=== PATIENT | female | born 1975 | race Caucasian/White ===

== ENCOUNTER 2023-06-10 09:20 | Outpatient (CLI) | payer OTHER, SELFPAY ==
--- NOTE | ~2023-06-10 | US_ITS ---
US abdomen complete EXAMINATION: US Abdomen Complete INDICATION: Leukopenia. PROCEDURE: Realtime High Resolution abdomen ultrasound. COMPARISON: No prior studies for comparison FINDINGS: Gallbladder is surgically absent. Common bile duct measures 4.5 mm. Liver echotexture within normal limits without focal mass. Pancreas within normal limits. Pancreati c tail is obscured by bowel gas. Spleen is unremarkeable. Renal echotexture is within normal limits bilaterally without hydronephrosis, contour deforming mass or renal stone. Right kidney measures 10.9 cm. Left kidney measures 11 cm. There is an oval hyperechoic 8 mm mass of the right kidney which may represent a small angiomyolipoma. Visualized aspects of the aorta and IVC are within normal limits. Portal vein is patent. No sonograph ic Villanueva's sign indicated by the technologist. 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 R ecommend correlation with CT abdomen with without and with contrast. Reviewed, dictated and finalized at location A. IMPRESSION: 1: Small oval circumscribed 8 mm hypoechoic right renal mass, possibly benign r enal angiomyolipoma. Recommend correlation with CT abdomen with without and wit h contrast.
== END 2023-06-10 09:21 | disposition home or self-care (01) ==
PROVIDERS: PCP Internal Medicine; Visit Provider Internal Medicine Hematology & Oncology
DX: D72.819 Decreased white blood cell count, unspecified (principal)
CPT/HCPCS: 76700

== ENCOUNTER 2024-06-24 12:57 | Outpatient (CLI) | payer OTHER, SELFPAY ==
[2024-06-24 13:13] LABS: Basophils Percent Auto 0.5 % (0.2-1.2); Eosinophils Absolute Auto 0.7 K/mm3 (0-0.3); Eosinophils Percent Auto 16.3 % (0-4.4); Hemoglobin 15.1 g/dL (12.0-15.0); Immature Granulocyte Absolute 0.01 K/mm3 (0.00-0.031); Immature Granulocyte Percent A 0.2 % (0-0.5); Lymphocytes Absolute Auto 0.79 K/mm3 (0.9-3.2); Mean Corpuscular HGB Conc 33.6 g/dl (32-36); Mean Corpuscular Hemoglobin 29.9 pg (26-34); Mean Corpuscular Volume 89.1 fl (80-100); Mean Platelet Volume 9.4 fl (7.4-10.4); Monocytes Absolute Auto 0.4 K/mm3 (0.1-0.6); Monocytes Percent Auto 8.7 % (2.6-8.5); Neutrophils Absolute Auto 2.3 K/mm3 (1.3-6.7); Neutrophils Percent Auto 55.3 % (45.5-73.1); Platelet Count Result 187 k/mm3 (150-375); Red Blood Count 5.05 M/mm3 (4.2-5.4); Red Cell Distribution Width 12.5 % (11.5-14.5); White Blood Count 4.2 K/mm3 (4.5-10.0)
== END 2024-06-24 12:58 | disposition home or self-care (01) ==
LOC: ANHLAB 12:58
PROVIDERS: PCP Internal Medicine; Visit Provider Internal Medicine Hematology & Oncology
DX: D64.9 Anemia, unspecified (principal)
CPT/HCPCS: 36415; 85025

== ENCOUNTER 2025-03-24 12:57 | Outpatient (CLI) | payer OTHER, SELFPAY ==
--- OUTSIDE RECORDS SUMMARY | 2025-03-24 13:02 | XMS_ITS | Clinical Summary ---
Author Organization [facility] Virtual Care Address [address] [place] [phone] Phone Care Team Providers Care Welder Helper Name Role Phone Jemma Medeiros NP Primary Care Provider [phone] Arleth Mckeon MD Unavailable [phone] Allergies Active Allergy Reactions Criticality Noted Date Comments Penicillins Rash,Unknown Medium 04/15/2013 As a baby Medications hydrOXYzine (ATARAX) 10 mg tablet Take 1 tablet (10 mg total) by mouth every 6 (six) hours as needed Active albuterol HFA (PROVENTIL HFA,VENTOLIN HFA,PROAIR HFA) 90 mcg/actuation inhaler Inhale 2 puffs every 6 (six) hours as needed for shortness of breath 04/05/20 22 Active albuterol-budes onide (Airsupra) 90-80 mcg/actuation HFA aerosol inhalerIndicati ons:SOB (shortness of breath) Inhale 2 puffs 4 (four) times a day as needed (sob) 32.1 g 1 06/15/20 24 Active azelastine (ASTELIN) 137 mcg (0.1 %) nasal spray Administer 2 sprays into affected nostril(s) 2 (two) times a day 06/17/20 24 Active Caplyta 21 mg capsule Take 1 capsule by mouth daily 06/11/20 24 Active QUEtiapine (SEROquel) 100 mg tablet Take 1 tablet (100 mg total) by mouth nightly Active divalproex ER (DEPAKOTE ER) 250 mg 24 hr tablet Take 1 tablet (250 mg total) by mouth 2 (two) times a day 180 tablet 3 02/10/20 25 026 Active estradioL (VIVELLE-DOT) 0.075 mg/24 hrIndications:H ormone replacement therapy (HRT) PLACE 1 PATCH ON THE SKIN TWICE A WEEK 24 patch 3 03/03/20 25 Active armodafiniL (NUVIGIL) 150 mg tabletIndicatio ns:Fibromyalgia Take 1 tablet (150 mg total) by mouth daily 30 tablet 3 03/02/20 25 025 Active pregabalin (LYRICA) 200 mg capsuleIndicati ons:Generalized joint pain Take 1 capsule (200 mg total) by mouth nightly 90 capsule 1 03/02/20 25 Active pregabalin (LYRICA) 100 mg capsuleIndicati ons:Generalized joint pain Take 1 capsule (100 mg total) by mouth 2 (two) times a day 180 capsule 1 03/02/20 25 Active estradioL (VIVELLE-DOT) 0.075 mg/24 hrIndications:H ormone replacement therapy (HRT) Place 1 patch on the skin 2 (two) times a week 24 patch 3 04/06/20 24 025 Discontinued pregabalin (LYRICA) 200 mg capsuleIndicati ons:Generalized joint pain Take 1 capsule (200 mg total) by mouth nightly 30 capsule 12/04/19 25 025 Discontinued pregabalin (LYRICA) 100 mg capsuleIndicati ons:Generalized joint pain Take 1 capsule (100 mg total) by mouth 2 (two) times a day 60 capsule 12/04/19 25 025 Discontinued Active Problems Problem Noted Date Diagnosed Date Meibomian gland dysfunction (MGD) of upper and lower lids of both eyes 10/28/2024 Assessment & Plan (10/28/2024 2:02 PM CDT): Educated patient on condition. Recommend hot compresses at least bid OU. If still bothersome after 1-2 weeks, can Rx maxitrol nathalie. BMI 27.0-27.9,adult 08/06/2024 Generalized joint pain 07/22/2024 Herpes zoster without complication 01/03/2024 Overview (01/03/2024): Start acyclovir gabapentin and Silvadene as directed. Notify the office without improvement of symptoms Endometrial hyperplasia 12/04/2023 Vitreous syneresis of both eyes 07/18/2023 Assessment & Plan (07/18/2023 2:17 PM HUNTER): May have increase in symptoms, no RD/RT, recommend observation. 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 Return in 9 months with fundus photos and B scan (unable to reliably find lesion on A-scan). Assessment & Plan (04/09/2024 1:37 PM CDT): Initial dx in 2015 and had been following with [facility] for serial monitoring, re-established care in [facility] The mass appears stable. Return in 6 months with fundus photos and B scan (unable to reliably find lesion on A-scan). Assessment & Plan (07/18/2023 2:05 PM HUNTER): Initial dx in 2015 and had been following with [facility] for serial monitoring, re-established care in [place] 2022. The mass appears stable. Return in 6 months with fundus photos and B scan. Assessment & Plan (01/10/2023 4:24 PM CDT): Initial dx in 2015 and had been following with [facility] for serial monitoring, recently yearly, most recently 08/2022. Patient moving to [place]. The choroidal mass is peripheral and small in size and thickness, will repeat follow up in 6 months. Low serum vitamin B12 12/19/2022 Vitamin D deficiency 12/19/2022 Seizure disorder 12/19/2022 Bipolar disorder, unspecified 06/12/2021 Insomnia, unspecified 06/12/2021 Resolved Problems Problem Noted Date Diagnosed Date Resolved Date SOB (shortness of breath) 06/15/2024 Positive CORRINA (antinuclear antibody) 01/10/2024 03/10/2024 Overview (01/10/2024): use referral to follow-up with rheumatology regarding positive CORRINA. Lab work will be loaded into your chart BMI 24.0-24.9, adult 10/07/2023 025 Assessment & Plan (06/15/2024 1:35 PM HUNTER): Weight/BMI is in healthy range. Continue healthy lifestyle to maintain. 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 03/10/2024 Other seizures 06/12/2021 03/10/2024 Encounters Date Type Department Care Team Description 03/10/2025 Orders Only [facility] Neuro Sleep [address] [facility] 6th Floor [address] [place] [phone] Kelle Guillaume RN Excessive daytime sleepiness (Primary Dx) 03/05/2025 Telephone [facility] Epilepsy [address] [place] [address] Teto Welsh MD PhD 03/05/2025 Telephone [facility] Family Medicine [address] [place] [address] [place] [phone] Jemma Medeiros NP Forms Request 03/02/2025 3:30 PM CDT Office Visit [facility] Family Medicine [address] [place] [address] [place] [phone] Jemma Medeiros NP Fibromyalgia (Primary Dx); BMI 27.0-27.9,adult; Acute pain of right shoulder; Generalized joint pain; Generalized joint pain 02/11/2025 Results Follow-Up [facility] Epilepsy [address] [facility] 6th [place] [address] [place] [address] Teto Welsh MD PhD Vitamin D 25 hydroxy, Comprehensive metabolic panel, CBC with auto differential, Additional followed-up results: 3 02/09/2025 7:00 PM CDT Lab [facility] [address] [place] [address] High risk medication use 02/09/2025 4:30 PM CDT Office Visit [facility] Epilepsy [address] [facility] 6th [place] [address] [place] [address] Teto Welsh MD PhD Seizure disorder (HCC) (Primary Dx); High risk medication use 01/28/2025 3:20 PM CDT Office Visit [facility] Ophthalmology [address] [facility] [address] [place] [address] Ani Welch MD Choroidal nevus, right eye (Primary Dx) from Last 3 Months Immunizations Immunization Administration Dates Next Due Influenza, Unspecified 05/26/2024,2023(Deferred: Patient Refused),10/07/2023(Deferred: Patient Refused),08/12/2023(Deferred: Patient Refused),08/12/2023(Deferred: Patient Refused),08/12/2023(Deferred: Patient Refused) Pfizer SARS-CoV-2 Monovalent Vaccination (12+ Yrs) PURPLE 01/23/2021,12/23/2020 Tdap 12/19/2022,12/29/2018 Surgical History Surgery Date Site/Laterality Comments BREAST SURGERY COSMETIC SURGERY SECTION FRACTURE SURGERY CHOLECYSTECTOMY HYSTERECTOMY 01/14/2024 Medical History Medical History Date Comments Asthma Anxiety Depression Seizures (HCC) Malignant melanoma of eye (HCC) 05/08/2023 Fibromyalgia Family History Medical History Relation Name Comments Cancer Brother Stew Depression Brother Stew Mental illness Brother Stew Depression Daughter 1 Carmen Obesity Daughter 1 Carmen Depression Daughter 2 Kiley Obesity Daughter 2 Kiley Depression Father Father Savage Diabetes Father Father Savage Mental illness Father Father Savage Cancer Maternal Grandfather Grandpa Dorian Diabetes Mother's Brother Thomas and Dami Diabetes Mother's Sister Nikki Aunt Mental illness Mother's Sister Nikki Aunt Cancer Paternal Grandfather Grandpa Filipe Early Paternal Grandfather Grandpa Filipe Obesity Paternal Grandfather Grandpa Filipe Diabetes Paternal Grandmother Grandma La Wana Diabetes Sister Sister Julianne Obesity Sister Sister Julianne Obesity Son Oscar Glaucoma Neg Hx Macular degeneration Neg Hx Retinal detachment Neg Hx Relation Name Status Comments Brother Stew Daughter 1 Carmen Daughter 2 Kiley Father Father Savage Maternal Grandfather Grandpa Dorian Mother's Brother Thomas and Dami Mother's Sister Nikki Aunt Paternal Grandfather Grandpa Filipe Paternal Grandmother Grandma La [place]ana Sister Sister Julianne Son Oscar Social History Tobacco Use Types Packs/Day Years Used Date Smoking Tobacco: Former Cigarettes Tobacco Cessation:Counseling Given: No AUDIT-C Answer Date Recorded Q1: How often do you have a drink containing alc ohol? Monthly or less 03/02/2025 Q2: How many drinks containi ng alcohol do you have on a typical day when you are drinking? 1 or 2 03/02/2025 Q3: How often do you have si x or more drinks on one occasion? Never 03/02/2025 PHQ-2 Answer Date Recorded PHQ-2 Total Score (If total score is 3 or more points, staff should administer the PHQ-9) 1 03/02/2025 PHQ-9 Answer Date Recorded PHQ-9 Total Score 9 08/20/2024 Personal Safety Answer Date Recorded Have you ever been in or are you currently in a harmful physical or emotional relationship or is someone making you feel afraid or unsafe? Denies 01/25/2024 Comments No Sex and Gender Information Value Date Recorded Sex Assigned at Not on file Legal Sex Female 2:17 PM HUNTER Gender Identity Female 07/21/2024 4:07 PM HUNTER Sexual Orientation Not on file Obstetrics History Para Term AB IAB SAB Ectopic Multiple Livin g Live Births 3 3 3 2 2 Date Outcome GA Total Labor Labor/2nd/3rd Weight Sex Type Anes PTL Rosy A1 A5 Name Clin 1994 Term F C-Sec tion Living Carmen1997 Term M C-Sec tion Living Oscar 2009 Term F C-Sec tion Mahi Last Filed Vital Signs Vital Sign Reading Time Taken Comments Blood Pressure 106/60 03/02/2025 3:07 PM CDT Pulse 77 03/02/2025 3:07 PM CDT Temperature 36.7 C (98.1 F) 03/02/2025 3:07 PM CDT Respiratory Rate 16 03/19/2024 1:02 PM CDT Oxygen Saturation 97% 03/02/2025 3:07 PM CDT Inhaled Oxygen Concentration - - Weight 72.1 kg (159 lb) 03/02/2025 3:07 PM CDT Height 162.6 cm (5' 4) 03/02/2025 3:07 PM CDT Body Mass Index 27.29 03/02/2025 3:07 PM CDT Plan of Treatment Health Maintenance Due Date Last Done Comments Hepatitis C Screening 1975 Hepatitis B Screening 1995 Covid-19 Vaccine ( season) 2024 01/23/2021, 12/23/2020 Regular Well Visit/Exam 18-64 04/01/2025 04/01/2024, 10/07/2023 Influenza Vaccine (#1) 2025 05/26/2024 Breast Cancer Screening-Mammogram 08/25/2025 08/25/2024 Depression Screening 03/02/2026 03/02/2025, 12/01/2024, 11/06/2024, Additional history exists Colon Cancer Screening-DNA Stool 05/04/2027 05/04/2024 DTaP/Tdap/Td Vaccine (3 - Td or Tdap) 12/19/2032 12/19/2022, 12/29/2018 Pneumococcal vaccine <65 Aged Out No longer eligible based on patient's age to complete this topic Procedures Procedure Name Priority Date/Time Associated Diagnosis Comments CBC WITH AUTO DIFFERENTIAL Routine 03/09/2025 2:22 PM CDT Seizure disorder (HCC) High risk medication use EGFR Routine 02/09/2025 5:11 PM CDT High risk medication use DIFFERENTIAL AUTO Routine 02/09/2025 5:1 1 PM CDT High risk medication use CBC WITH AUTO DIFFERENTIAL Routine 02/09/2025 5:11 PM CDT High risk medication use COMPREHENSIVE METABOLIC PANEL Routine 02/09/2025 5:11 PM CDT High risk medication use VITAMIN D 25 HYDROXY Routine 02/09/2025 5:11 PM CDT High risk medication use B-SCAN ULTRASOUND 56212 - OD - RIGHT EYE Routine 01/28/2025 4:12 PM CDT Choroidal nevus, right eye FUNDUS PHOTOS/FAF - OD - RIGHT EYE Routine 01/28/2025 4:10 PM CDT Choroidal nevus, right eye SCREENING MAMMOGRAM BILATERAL W AZAR W IMPLANTS Schedule Routine, Read Routine (OP Routine) 08/25/2024 1:38 PM HUNTER Screening mammogram, encounter for STOOL DNA COLOGUARD Routine 05/04/2024 3:30 PM CDT Colon cancer screening from Last 3 Months or Most Recently Relevant to Health Maintenance Results * CBC with auto differential (03/09/2025 2:22 PM CDT) WBC 4.1 3.4 - 10.8 x10E3/uL [facility] - 01 RBC 4.85 3.77 - 5.28 x10E6/uL [facility] - 01 Hgb 14.4 11.1 - 15.9 g/dL [facility] - 01 Hct 43.0 34.0 - 46.6 % [facility] - 01 MCV 89 79 - 97 fL [facility] - 01 MCH 29.7 26.6 - 33.0 pg [facility] - 01 MCHC 33.5 31.5 - 35.7 g/dL [facility] - 01 Rdw 12.9 11.7 - 15.4 % [facility] - 01 Platelets 201 150 - 450 x10E3/uL [facility] - 01 Neutrophils pct 68 Not Estab. % [facility] - 01 Lymphs pct 21 Not Estab. % [facility] - 01 Monocytes pct 11 Not Estab. % [facility] - 01 Eosinophils pct 0 Not Estab. % [facility] - 01 Basophil pct 0 Not Estab. % [facility] - 01 Neutrophil abs 2.8 1.4 - 7.0 x10E3/uL [facility] - 01 Lymphs (Absolute) 0.9 0.7 - 3.1 x10E3/uL [facility] - 01 Monocyte abs 0.5 0.1 - 0.9 x10E3/uL [facility] - 01 Eosinophils, abs 0.0 0.0 - 0.4 x10E3/uL [facility] - 01 Basophils, abs 0.0 0.0 - 0.2 x10E3/uL [facility] - 01 Immature Granulocytes 0 Not Estab. % [facility] - 01 Immature Grans (Abs) 0.0 0.0 - 0.1 x10E3/uL [facility] - 01 Blood 03/09/2025 2:22 PM CDT 03/09/2025 Narrative [facility] - 03/10/2025 7:09 AM CDT Performed at: - [address] [id number] Medical Research Associate: Tang Shirley PhD, Phone: [phone] us Teto Welsh MD PhD LAB BLOOD ORDERABLES Karina l Result [facility] - * eGFR (02/09/2025 5:11 PM CDT) eGFR >90 >=60 mL/min/1. 73 m2 Comment: Interpretive Data Reference Interval Normal >/= 90 mL/min/1.73m2 Mildly decreased* 60 - 89 mL/min/1.73m2 Mildly to moderately decreased 45 - 59 mL/min/1.73m2 Moderately to severely decreased 30 - 44 mL/min/1.73m2 Severely decreased 15 - 29 mL/min/1.73m2 Kidney Failure < 15 mL/min/1.73m2 *Relative to young adult level Estimated glomerular filtration rate is determined by the 2020 CKD-EPI equation recommended by the National Kidney Foundation (A Unifying Approach to GFR Estimation: Recommendations of the NKF-ASK Task Force on Reassessing the Inclusion of Race in Diagnosing Kidney Disease, JASN 2020). The CKD-EPI equation should not be used for patients with unstable renal function and has not been validated in children and those over 70. Current interpretive data was last reviewed 2021. Blood 02/09/2025 5:11 PM CDT 02/09/2025 5:40 PM CDT us Teto Welsh MD PhD LAB BLOOD ORDERABLES Karina ravindra Result [facility] [place] [address] * (ABNORMAL) Differential, auto (02/09/2025 5:11 PM CDT) Pathologist [facility] Neutrophil abs 1.66 1.50 - 6.50 K/cumm Imm gran abs 0.02 0.00 - 0.10 K/cumm [facility] Lymphocyte abs 0.66(L) 0.80 - 3.30 K/cumm [facility] Monocyte abs 0.29 0.20 - 0.80 K/cumm [facility] Eosinophil abs 0.01 0.00 - 0.50 K/cumm [facility] Basophil abs 0.00 0.00 - 0.10 K/cumm [facility] Neutrophil pct 62.8 % [facility] Comment: Interpretive Data Percent cell count reference ranges are not reported, since discordance with absolute values may lead to misinterpretation of CBC data. Current Interpretive Data was last revised on 2017. Imm gran pct 0.8 % [facility] Comment: Interpretive Data Percent cell count reference ranges are not reported, since discordance with absolute values may lead to misinterpretation of CBC data. Current Interpretive Data was last revised on 2017. Lymphocyte pct 25.0 % [facility] Comment: Interpretive Data Percent cell count reference ranges are not reported, since discordance with absolute values may lead to misinterpretation of CBC data. Current Interpretive Data was last revised on 2017. Monocyte pct 11.0 % [facility] Comment: Interpretive Data Percent cell count reference ranges are not reported, since discordance with absolute values may lead to misinterpretation of CBC data. Current Interpretive Data was last revised on 2017. Eosinophil pct 0.4 % [facility] Comment: Interpretive Data Percent cell count reference ranges are not reported, since discordance with absolute values may lead to misinterpretation of CBC data. Current Interpretive Data was last revised on 2017. Basophil pct 0.0 % [facility] Comment: Interpretive Data Percent cell count reference ranges are not reported, since discordance with absolute values may lead to misinterpretation of CBC data. Current Interpretive Data was last revised on 2017. Blood 02/09/2025 5:11 PM CDT 02/09/2025 5:35 PM CDT Teto Welsh MD PhD LAB BLOOD ORDERABLES Karina waite Result [facility] [address] [facility] [place] [address] * (ABNORMAL) CBC with auto differential (02/09/2025 5:11 PM CDT) WBC 2.64(L) 3.80 - 9.90 K/cumm Hgb 13.9 11.9 - 15.5 g/dL [facility] Hct 40.0 35.6 - 45.5 % [facility] Plt 150 150 - 400 K/cumm [facility] MPV 9.7 9.1 - 12.3 fL [facility] RBC 4.72 3.90 - 5.20 M/cumm [facility] MCV 84.7 81.3 - 96.4 fL [facility] MCH 29.4 27.1 - 33.3 pg [facility] MCHC 34.8 32.3 - 35.7 g/dL [facility] RDW CV 12.8 11.1 - 14.9 % [facility] RDW SD 39.2 35.7 - 48.1 fL [facility] NRBC abs 0.00 0.00 - 0.01 K/cumm [facility] Blood 02/09/2025 5:11 PM CDT 02/09/2025 5:35 PM CDT Teto Welsh MD PhD LAB BLOOD ORDERABLES Karina l Result Performing Organization Address City/[facility]/ZIP Co de Phone Number [facility] Department [place] [employer] [place] [address] * Vitamin D 25 hydroxy (02/09/2025 5:11 PM CDT) [facility] Vitamin D 25-OH 45 30 - 80 ng/mL Blood 02/09/2025 5:11 PM CDT 02/09/2025 5:35 PM CDT Teto Welsh MD PhD LAB BLOOD ORDERABLES Karina l Result Performing Organization Address [facility] de Phone Number [facility] Department [place] [address] * Comprehensive metabolic panel (02/09/2025 5:11 PM CDT) [facility] Sodium 143 135 - 145 mmol/L Potassium, pl 3.9 3.3 - 4.9 mmol/L [facility] Chloride 106 97 - 110 mmol/L [facility] CO2 32 22 - 32 mmol/L [facility] Anion gap 5 2 - 15 mmol/L [facility] BUN 7 6 - 25 mg/dL [facility] Creatinine 0.65 0.60 - 1.10 mg/dL [facility] Glucose 83 70 - 199 mg/dL [facility] Comment: Interpretive Data Fasting glucose >/= 126 mg/dl is diagnostic for diabetes. Fasting is defined as no caloric intake for at least 8 hours. Fasting glucose between 100 mg/dl to 125 mg/dl is diagnostic of prediabetes. In a patient with classic symptoms of hyperglycemia or hyperglycemic crisis, a random glucose >/= 200 mg/dl is diagnostic for diabetes. In the absence of unequivocal hyperglycemia, results should be confirmed by repeat testing. The classification and Diagnosis of Diabetes Diabetes Care 2021; 46: S19-S40. Current interpretive data was last revised 2022. Calcium 9.9 8.5 - 10.3 mg/dL [facility] Bilirubin, total 1.0 0.1 - 1.2 mg/dL [facility] Protein, pl 6.9 6.5 - 8.5 g/dL [facility] Albumin 4.3 3.5 - 5.0 g/dL [facility] Alk phos 80 40 - 130 Units/L [facility] ALT 18 7 - 45 Units/L [facility] AST 21 10 - 45 Units/L [facility] Blood 02/09/2025 5:11 PM CDT 02/09/2025 5:35 PM CDT Teto Welsh MD PhD LAB BLOOD ORDERABLES Karina l Result [facility] [place] [address] * B-SCAN ULTRASOUND 05020 - OD - RIGHT EYE (01/28/2025 4:12 PM CDT) Clock Hour 6 O'Clock CONTINUUM Height 1.70 millimeters CONTINUUM Longitude 5.66 millimeters CONTINUUM Anatomical Region Laterality Modality Head Ultrasound Narrative 01/28/2025 4:12 PM CDT Quality was good. Lesion size was unchanged. 6 O'Clock. 5.66 millimeters. 1.70 millimeters. Notes No EOE Allie Loya MD OPH ULTRASOUND Edited Resul t - Final * Fundus Photos/FAF - OD - Right Eye (01/28/2025 4:10 PM CDT) Anatomical Region Laterality Modality Head Fundus Photograp hy Narrative 01/28/2025 4:10 PM CDT Quality was good. Progression has been stable. Notes Inferior nevus, stable. Allie Loya MD OPH PHOTOGRAPHY Final Resul t * (ABNORMAL) Screening Mammogram Bilateral W Azar W Implants (08/25/2024 1:38 PM HUNTER) Anatomical Region Laterality Modality Breast Bilateral Mammography Narrative 09/09/2024 9:51 AM HUNTER Examination: Screening Mammogram Bilateral W Azar W Implants: 08/25/24 Clinical: Screening mammogram, encounter for. Prior Study Comparisons: Comparison was made to the prior available relevant studies at the time of interpretation. Findings: Screening Mammogram Bilateral W Azar W Implants Left 1) Mass: There is an equal density, oval mass with obscured margins seen in the retroareolar region of the left breast. This finding needs additional imaging evaluation. Right No significant masses, malignant type calcifications, skin thickening, nipple retraction, or significant lymphadenopathy is noted in this breast. Computer Aided Detection was utilized for the interpretation of this study. There are scattered areas of fibroglandular density. The patient will be notified of results by letter. Impression: BI-RADS ATLAS category (left): 0 - Incomplete: Needs Additional Imaging Evaluation Overall Assessment: 0 - Incomplete: Needs Additional Imaging Evaluation Recommendation: - Ultrasound with possible additional views for the left breast. us Self Screening Mammogram IMG MAMMO PROCEDURES Fi nal Result * Stool DNA - Cologuard (05/04/2024 3:30 PM CDT) Stool DNA - Cologuard Negative Negative [employer] (CLIA #:[id number]) Comment: NEGATIVE TEST RESULT. A negative Cologuard result indicates a low likelihood that a colorectal cancer (CRC) or advanced adenoma (adenomatous polyps with more advanced pre-malignant features) is present. The chance that a person with a negative Cologuard test has a colorectal cancer is less than 1 in 1500 (negative predictive value >99.9%) or has an advanced adenoma is less than 5.3% (negative predictive value 94.7%). These data are based on a prospective cross-sectional study of 10,000 individuals at average risk for colorectal cancer who were screened with both Cologuard and colonoscopy. (Isa Silverio al, N Engl J Med 2014;370(14):6083-1578) The normal value (reference range) for this assay is negative. COLOGUARD RE-SCREENING RECOMMENDATION: Periodic colorectal cancer screening is an important part of preventive healthcare for asymptomatic individuals at average risk for colorectal cancer. Following a negative Cologuard result, the [place] [employer] and U.S. Multi-Society Task Force screening guidelines recommend a Cologuard re-screening interval of 3 years. References: [place] [employer] Guideline for Colorectal Cancer Screening: https://www.cancer.org/cancer/enllt-gknvko-otobfr/mfxdigelf-aodzrfdve-yjvfcgj/ac s-rec ommendations.html.; Brent DK, Paul BOYCE, Kiana AnneK, Colorectal Cancer Screening: Recommendations for Physicians and Patients from the U.S. Multi-Society Task Force on Colorectal Cancer Screening , Am J Gastroenterology 2017; 112:8725-0072. TEST DESCRIPTION: Composite algorithmic analysis of stool DNA-biomarkers with hemoglobin immunoassay. Quantitative values of individual biomarkers are not reportable and are not associated with individual biomarker result reference ranges. Cologuard is intended for colorectal cancer screening of adults of either sex, 45 years or older, who are at average-risk for colorectal cancer (CRC). Cologuard has been approved for use by the U.S. FDA. The performance of Cologuard was established in a cross sectional study of average-risk adults aged 50-84. Cologuard performance in patients ages 45 to 49 years was estimated by sub-group analysis of near-age groups. Colonoscopies performed for a positive result may find as the most clinically significant lesion: colorectal cancer [4.0%], advanced adenoma (including sessile serrated polyps greater than or equal to 1cm diameter) [20%] or non- advanced adenoma [31%]; or no colorectal neoplasia [45%]. These estimates are derived from a prospective cross-sectional screening study of 10,000 individuals at average risk for colorectal cancer who were screened with both Cologuard and colonoscopy. (Isa Silverio al, N Engl J Med 2014;370(14):7803-1891.) Cologuard may produce a false negative or false positive result (no colorectal cancer or precancerous polyp present at colonoscopy follow up). A negative Cologuard test result does not guarantee the absence of CRC or advanced adenoma (pre-cancer). The current Cologuard screening interval is every 3 years. ([place] [employer] and U.S. Multi-Society Task Force). Cologuard performance data in a 10,000 patient pivotal study using colonoscopy as the reference method can be accessed at the following location: [email or web address]/results. Additional description of the Cologuard test process, warnings and precautions can be found at [email or web address]. 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
--- OUTSIDE RECORDS SUMMARY | 2025-03-24 13:02 | XMS_ITS | Patient Health Record ---
Author Organization Unknown Care Team Providers Care Manager File Name Role Phone Elizabeth Escobedo Unavailable [phone] ALLERGIES Allergen (clinical drug ingredient) Drug/Non Drug Allergy documented on EMR Reaction Allergy Type Onset Date Status sulfa (uncoded) Unknown Allergy Acti ve penicillin (uncoded) Unknown Allergy Active REASON FOR REFERRAL No Information MEDICATIONS Medication SIG (Take, Route, Frequency, Duration) Notes Start Date End Date Status acetaminophen-oxycodone 325 mg-5 mg 1 tab(s) orally every 6 hours, as needed for pain for 3 days 04/17/2022 Active ibuprofen 600 mg 1 tab(s) orally ever y 6 hours, as needed for pain for 14 days 04/17/2022 Active LaMICtal 150 mg 1 tab(s) orally once a day Active Seroquel XR 150 mg 1 tab(s) orally once a day (in the evening) for 30 day(s) Active Keppra 1000 mg 1 tab(s) orally 2 ti mes a day for 30 day(s) Active Acetaminophen-Oxycodone Hydrochloride 325 mg-5 mg 1 tab(s) orally every 6 hours for 3 days 04/17/2022 Active PROBLEMS Problem Type ICD Code Onset Dates Problem Status W/U Status Risk SNOMED Code Notes Problem Other specified conditions associated with female genital organs and menstrual cycle (N94.89) Active confirmed Disorder of female genital organs (364886876) Problem Excessive and frequent menstruation with regular cycle (N92.0) Active confirmed Excessive and frequent menstruation (743578001) Problem Dysmenorrhea, unspecified (N94.6) Active confirmed Problem Menopausal and female climacteric states (N95.1) Active confirmed Menopause (502540072) PLAN OF TREATMENT No Information Insurance Providers Payer Name Payer Address Payer Phone Subscriber Number Group Number Insured Name Patient Relationship to Insured Coverage Start Date Coverage End Date [employer] of [place] [address] [place] [phone] [id number] GODFREY CARTER Self - patient is the insured MEDICAL (GENERAL) HISTORY Medical History History ICD Code Epilepsy, bipolar, ocular cancer Surgical History Surgery Date(Month/Year) essure 2015 gallbladder removal 2010 sinus surgery 2017 tummy tuck, breast lift and mar 2021
--- OUTSIDE RECORDS SUMMARY | 2025-03-24 13:02 | XMS_ITS ---
Author Organization [facility] ([address]) Address [address] [place] [address] Care Team Providers Care Wirer Passenger Car Name Role Phone Jemma Medeiros Primary Care Provider Hailey Ward Unavailable [phone] REASON FOR VISIT ARC follow-up Encounters Encounter Location Date Provider Diagnosis [facility] [address] [place] [address] 07/22/2024 Hailey Sena Plan Of Treatment No Information Progress Notes * Alison CALVERTTorstenB:1974 (50 yo F)Acc No.[id number]:07/22/2024 Progress Notes Patient: Alison ORDAZ Provider: Dayana Sena MD :1975 A ge:49 Y S ex:Female Date:07/22/2024 Address:[address] [place], [place] [id number] Pcp:Jemma Medeiros Subjective: * Chief Complaints: * 1 . ARC follow-up. * Medical History: Objective: * Vitals: Assessment: Plan: * Treatment: * Billing Information: * Visit Code: * Procedure Codes: * Electronic signature of Nesha Sena MD on 03/24/2025 at 01:02 PM CDT Sign off status: Pending * Provider: Dayana Sena MD Date: 1 09/22/2023 Generated for Printi ng/Fayuliyag/eTransmitting on: 0 03/24/2025 01:02 PM CDT
--- OUTSIDE RECORDS SUMMARY | 2025-03-24 13:02 | XMS_ITS | Clinical Summary ---
Author Organization [facility] Address [address] [place] [address] Care Team Providers Care Carpenters Helper Name Role Phone Nadege Ordoñez MD Primary Care Provider Source Comments [facility],non-owned Affiliates and Associated Physician Practices is amultiple site organization consisting of ambulatory clinics and hospital sitesin [place], [place], [place] and [place]. This disclosure is being madepursuant to the Care Everywhere program and may not contain all information available regarding this patient. Last updated 18.[facility] Allergies Active Allergy Reactions Criticality Noted Date Comments Penicillins Rash Medium 01/17/2023 Sulfa Drugs Shortness of Breath High 01/17/2023 Medications * Be aware that medications may not be up to date on this document. Alwaysverify current medications with the patient. levETIRAcetam (Keppra) 1000 MG tablet Take 1 (one) tablet by mouth 2 times daily Active lamoTRIgine (LaMICtal) 150 MG tablet Take 1 (one) tablet by mouth once daily Active QUEtiapine XR 24hr (SEROquel XR) 200 MG tablet Take 1 (one) tablet by mouth at bedtime Active omeprazole (PriLOSEC) 40 MG capsule Take 1 (one) capsule by mouth once daily 30 capsule 3 Active Additional Information Patient not taking.Reported on 02/16/2023 sucralfate (Carafate) 1 GM/10ML suspension Take 10 mL by mouth 4 times daily 414 mL 3 Active Additional Information Patient not taking.Reported on 02/16/2023 albuterol HFA (Proventil; Ventolin; Proair) 108 (90 Base) MCG/ACT inhaler 2 Active divalproex ER 24hr (Depakote ER) 250 MG tablet 3 Active hydrOXYzine HCl (Atarax) 10 MG tablet TAKE 1 TABLET BY MOUTH FOUR TIMES DAILY NEEDED FOR ANXIETY, MAY CAUSE SEDATION Active ibuprofen (Motrin) 600 MG tablet 2 Active Active Problems No known active problems Social History Tobacco Use Types Packs/Day Years Used Date Smoking Tobacco: Never Smokeless Tobacco: Never Tobacco Cessation:Counseling Given: Not Answered Alcohol Use Standard Drinks/Week Comments Yes 0 (1 standard drink = 0.6 oz pur e alcohol) socially AUDIT-C Answer Date Recorded Q1: How often do you have a drink containing alc ohol? Monthly or less 01/17/2023 Q2: How many drinks containi ng alcohol do you have on a typical day when you are drinking? 1 or 2 01/17/2023 Q3: How often do you have si x or more drinks on one occasion? Less than monthly 01/17/2023 Comments No Sex and Gender Information Value Date Recorded Sex Assigned at Not on file Legal Sex Female 4:25 PM CDT Gender Identity Not on file Sexual Orientation Not on file Last Filed Vital Signs Vital Sign Reading Time Taken Comments Blood Pressure 102/70 02/16/2023 10:41 AM CDT Pulse 67 02/16/2023 10:41 AM CDT Temperature 36.7 C (98.1 F) 02/16/2023 10:41 AM CDT Respiratory Rate 18 02/16/2023 10:41 AM CDT Oxygen Saturation 98% 02/16/2023 10:41 AM CDT Inhaled Oxygen Concentration - - Weight 61.2 kg (135 lb) 02/16/2023 10:41 AM CDT Height 162.6 cm (5' 4) 02/16/2023 10:41 AM CDT Body Mass Index 23.17 02/16/2023 10:41 AM CDT Plan of Treatment Health Maintenance Due Date Last Done Comments COLOGUARD (AGES 45-75) - COL ON CA SCREENING 1977 COLON MONITORING 1977 COLONOSCOPY - COLON CA SCREENING 1977 CT COLONOGRAPHY - COLON CA SCREENING 1977 Colorectal Cancer Screening 1977 FIT - COLON CA SCREENING 1977 FLEX SIG - COLON CA SCREENING 1977 LIPID TESTING 1977 MAMMOGRAM 1977 HIV SCREENING 1992 HEPATITIS C SCREENING 02/25/1995 DTAP/TDAP/TD VACCINES (1 - Tdap) 1996 HEPATITIS B VACCINE (1 of 3 - 19+ 3-dose series) 1996 PAP SMEAR 1998 COVID-19 VACCINE (1 - 2023-2 5 season) 2024 DEPRESSION SCREENING 08/12/2024 INFLUENZA VACCINE (#1) 2025 ZOSTER VACCINE (1 of 2) 2027 HIB VACCINE Aged Out No longer eligi ble based on patient's age to complete this topic HPV VACCINE Aged Out No longer eligi ble based on patient's age to complete this topic MENINGOCOCCAL (Group B) VACC INE SHARED DECISION-MAKING Aged Out No longer eligibl e based on patient's age to complete this topic MENINGOCOCCAL GROUPS A/C/Y/W VACCINE Aged Out No longer eligible b ased on patient's age to complete this topic PNEUMOCOCCAL VACCINE Aged Out No long er eligible based on patient's age to complete this topic Insurance [employer] Address: [facility] [id number] [phone] [employer] Care Teams Carpenters Helper Relationship Specialty Start Date End Date Nadege Ordoñez MD [address] [phone] PCP - General Internal Medicine 01/17/23
--- OUTSIDE RECORDS SUMMARY | 2025-03-24 13:02 | XMS_ITS | Patient Health Record ---
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 Role Phone Jemma Drake Primary Care Provider Cristi Dumont Unavailable [phone] Allergies Allergen (clinical drug ingredient) Drug/Non Drug Allergy documented on EMR Reaction Allergy Type Onset Date Status Substance with penicillin structure and antibacterial mechanism of action (substance) Penicillins Unknown Drug Allergy 12/24/2023 Active Reason For Referral No Information Medications Medication SIG (Take, Route, Frequency, Duration) Notes Start Date End Date Status QUEtiapine Fumarate ER 50 MG 2 tablet at bedtime Orally Once a day; Duration: 90 days Active hydrOXYzine HCl 10 MG Oral 12/24/2023 Active Caplyta 21 MG 1 tablet Orally once daily; Duration: 30 days Active Estradiol 1 MG/GM 1 packet to skin Transdermal Once a day; Duration: 84 days Active Divalproex Sodium ER 250 MG Oral 12/24/2023 Active Pregabalin 150 MG Oral; Duration: 30 Days Active Social History Tobacco Use: Social History Observation Description Date Details (start date - stop date) Never Smoker NA - NA Sex Assigned At : Social History Observation Description Sex Assigned At Female Tobacco Control (Standard) Question Answer Notes Tobacco use: Nonsmoker How long has it been since you last smoked? 5-10 years Problems Problem Type SNOMED Code ICD Code Onset Dates Problem Status W/U Status Risk Notes Problem Generalized anxiety disorder (90497110) Generalized anxiety disorder (F41.1) Active confirmed Problem Post-traumatic stress disorder (00052902) Post-traumatic stress disorder, unspecified (F43.10) Active confirmed Problem Bipolar disorder (62921179) Bipolar I disorder with depression (F31.9) Active confirmed Vital Signs Heart Rate 83 /min 02/24/2025 Blood pressure diastolic 78 mm Hg 02/24/2025 Height-cm 162.56 cm 02/24/2025 Weight-kg 71.21 kg 02/24/2025 Height 64.00 in 02/24/2025 Blood pressure systolic 117 mm Hg 02/24/2025 Weight 157 lbs 02/24/2025 BMI 26.95 kg/m2 02/24/2025 Encounters Encounter Location Date Provider Diagnosis [facility] [employer] [place] [address] [place] [address] 03/24/2024 Cristi Sáncheza Bipolar disorder, unspecified F31.9 ; Generalized anxiety disorder F41.1 and Post-traumatic stress disorder, unspecified F43.10 [facility] [employer] [place] [address] [facility] [address] [place] [address] 05/26/2024 Cristi Sáncheza Generalized anxiety disorder F41.1 ; Post-traumatic stress disorder, unspecified F43.10 and Bipolar I disorder with depression F31.9 [employer] [place] [address] [facility] [address] [place] [address] 07/17/2024 Cristi Sáncheza Generalized anxiety disorder F41.1 ; Post-traumatic stress disorder, unspecified F43.10 and Bipolar I disorder with depression F31.9 [facility] [employer] [place] [address] [address] 08/07/2024 Cristi Eliasoza Generalized anxiety disorder F41.1 ; Post-traumatic stress disorder, unspecified F43.10 and Bipolar I disorder with depression F31.9 [employer] [place] [address] [place] [address] 10/26/2024 Cristi Sáncheza Bipolar I disorder w ith depression F31.9 ; Encounter for screening for depression Z13.31 ; Encounter for screening for cardiovascular disorders Z13.6 ; Generalized anxiety disorder F41.1 and Post-traumatic stress disorder, unspecified F43.10 [facility] [employer] [place] [address] [facility] [address] [place] [address] 01/25/2025 Cristi Sáncheza Encounter for screen ing for depression Z13.31 ; Encounter for screening for cardiovascular disorders Z13.6 ; Bipolar I disorder with depression F31.9 ; Generalized anxiety disorder F41.1 and Post-traumatic stress disorder, unspecified F43.10 [facility] [employer] [facility] [address] [place] [address] 02/24/2025 Cristi Gardner Bipolar I disorder w ith depression F31.9 ; Generalized anxiety disorder F41.1 and Post-traumatic stress disorder, unspecified F43.10 [facility] [employer] [facility] [address] [place] [address] 06/30/2024 Cristi Gardner Bipolar I disorder w ith depression F31.9 [facility] [employer] [facility] [address] [place] [address] 06/03/2024 Cristi Gardner [facility] [employer] [facility] [address] [place] [address] 06/09/2024 Cristi Gardner Bipolar I disorder w ith depression F31.9 Assessments Encounter Date Diagnosis (ICD Code) Assessment Notes Treatment Notes Treatment Clinical Notes Section Notes 03/24/2024 Bipolar disorder, unspecified (ICD-10 - F31.9) 1. Post-hysterect howard recovery and hormone replacement therapy: - Patient reports improvement in mood, sleep, and hair quality since starting estrogen patch (0.5 mg twice a week). Plan: - Continue estrogen patch and monitor for any side effects or changes in symptoms. 2. Anxiety: - Patient reports reduced anxiety since starting hormone replacement therapy. - Currently on hydroxyzine 10 mg three times a day as needed. Plan: - Continue hydroxyzine as needed and monitor for any changes in anxiety levels. 3. Bipolar disorder: - Patient denies any manic symptoms and reports improvement with Seroquel XR 150 mg. - Lamotrigine has been discontinued. Plan: - Continue Seroquel XR 150 mg and monitor for any changes in mood or bipolar symptoms. Follow-up: - Schedule a follow-up appointment in two months to assess the patient's progress and any changes in symptoms. - Patient will also see a neurologist in May. 03/24/2024 Generalized anxiety disorder (ICD-10 - F41.1) hydroxyzine 10mg tid prn 1. Post-hysterect howard recovery and hormone replacement therapy: - Patient reports improvement in mood, sleep, and hair quality since starting estrogen patch (0.5 mg twice a week). Plan: - Continue estrogen patch and monitor for any side effects or changes in symptoms. 2. Anxiety: - Patient reports reduced anxiety since starting hormone replacement therapy. - Currently on hydroxyzine 10 mg three times a day as needed. Plan: - Continue hydroxyzine as needed and monitor for any changes in anxiety levels. 3. Bipolar disorder: - Patient denies any manic symptoms and reports improvement with Seroquel XR 150 mg. - Lamotrigine has been discontinued. Plan: - Continue Seroquel XR 150 mg and monitor for any changes in mood or bipolar symptoms. Follow-up: - Schedule a follow-up appointment in two months to assess the patient's progress and any changes in symptoms. - Patient will also see a neurologist in May. 06/09/2024 Bipolar I disorder with depression (ICD-10 - F31.9) 06/30/2024 Bipolar I disorder with depression (ICD-10 - F31.9) 07/17/2024 Generalized anxiety disorder (ICD-10 - F41.1) hydroxyzine 10mg tid prn 1. Bipolar Depression: - Patient is currently on Caplyta 21 mg, which was increased on June 09. - Patient reports some improvement in anxiety but still experiences depression. - Patient prefers to maintain the current dosage. Plan: - Continue Caplyta 21 mg. - Reassess in one month. 2. Anxiety: - Patient reports initial anxiety after increasing Caplyta but has since improved. Plan: - Continue monitoring. - Follow up in one month. 3. Fatigue and difficulty waking up in the morning: - Patient has seen a sheet cutter, desktop administrator , and civil rights attorney for evaluation. - [employer] Prevention Specialist prescribed an allergy pill, which has improved sleep quality. - Patient is currently on quetiapine ER 150 mg. Plan: - Decrease quetiapine to 100 mg (two 50 mg tablets) to assess if this improves morning fatigue. - Reevaluate in one month. 5. Follow-up: Plan: - Schedule a follow-up appointment in one month to assess the patient's response to the decreased quetiapine dosage and ongoing depression management. - Send the quetiapine prescription to [facility] as requested by the patient. 08/07/2024 Generalized anxiety disorder (ICD-10 - F41.1) hydroxyzine 10mg tid prn 1. Fibromyalgia: - Patient reports starting Lyrica 3 weeks ago and recently had a dose increase. - Initial response was positive with reduced pain and improved sleep. - Patient plans to try acupuncture and maintain a low-inflammato ry diet. Plan: - Continue monitoring the effectiveness of Lyrica. - Consider further adjustments if needed. 2. Depression: - Patient reports feeling stable with no significant depressive symptoms. - Currently on Caplyta 21 mg, which seems to be working well. Plan: - Continue Caplyta at the current dose. - Monitor for any changes in mood or depressive symptoms. 3. Bipolar Disorder: - No recent manic episodes reported. - Patient is on quetiapine ER 100 mg (2 tablets of 50 mg) and Caplyta 21 mg. Plan: - Continue with the current medication regimen. - Monitor for any signs of josué or mood instability. 4. Anxiety: - Patient reports consistent anxiety but is managing it. Plan: - No changes in medication needed at this time. - Continue to monitor anxiety levels. - Consider adjustments to treatment if necessary. 5. Seizure control: - Patient is on Depakote for seizure control. - Neurologist is aware and has indicated that adjustments can be made if needed. - Lyrica also has anti-seizure properties, which may provide additional benefit. Plan: - Continue monitoring for any seizure activity. - Collaborate with the neurologist for any necessary adjustments. 6. Medication refills: Plan: - Send refills for Caplyta 21 mg and quetiapine ER 100 mg (2 tablets of 50 mg) to [facility]. - Consider using [facility] for refills next time. 7. Follow-up: - Schedule a follow-up appointment in approximately 3 months to monitor progress and make any necessary adjustments to the treatment plan. 10/26/2024 Bipolar I disorder with depression (ICD-10 - F31.9) 01/25/2025 Encounter for screening for depression (ICD-10 - Z13.31) 02/24/2025 Bipolar I disorder with depression (ICD-10 - F31.9) 05/26/2024 Generalized anxiety disorder (ICD-10 - F41.1) hydroxyzine 10mg tid prn 1. Bipolar depression: - Patient reports feeling consistently low for the past year and experiencing side effects from Depakote, including tremors, weight gain, sedation, and cognitive issues. Plan: - Add Caplyta 10.5 mg for bipolar depression. - Continue quetiapine ER 150 mg as it has been effective. - Monitor patient's response to the new medication and adjust as necessary. 2. Epilepsy: - Patient has a history of epilepsy and is currently on Depakote for seizure control. - Reports cognitive fatigue and side effects from Depakote that contribute to her depression. Plan: - Patient will see her neurologist on the to discuss alternative epilepsy medication options. - Continue Depakote until further evaluation by the neurologist. 3. Sleep disturbance: - Patient reports poor sleep quality. Plan: - Encourage the patient to maintain good sleep hygiene and monitor sleep patterns. - Reevaluate sleep quality after the addition of Caplyta and potential changes in epilepsy medication. 4. Social isolation: - Patient is struggling with making connections and forming friendships in her new location. Plan: - Encourage the patient to continue participating in social activities, such as joining Facebook groups and meeting up with people. - Provide support and reassurance during this transitional period. 5. Medication management: - Patient inquires about switching her medication pick-up location to [facility] in [facility]. Plan: - Provide samples of Caplyta to the patient to start the new medication. - Instruct the patient to contact her insurance company to confirm if she can switch her medication pick-up location to [facility] in [facility]. 6. Hormonal imbalance: - Patient had a major estrogen deficit for two years, which has since been corrected. Plan: - Continue monitoring patient's hormonal levels and overall well-being. - Reevaluate the impact of hormonal balance on the patient's mood and mental health. 05/26/2024 Post-traumatic stress disorder, unspecified (ICD-10 - F43.10) cont counseling 1. Bipolar depression: - Patient reports feeling consistently low for the past year and experiencing side effects from Depakote, including tremors, weight gain, sedation, and cognitive issues. Plan: - Add Caplyta 10.5 mg for bipolar depression. - Continue quetiapine ER 150 mg as it has been effective. - Monitor patient's response to the new medication and adjust as necessary. 2. Epilepsy: - Patient has a history of epilepsy and is currently on Depakote for seizure control. - Reports cognitive fatigue and side effects from Depakote that contribute to her depression. Plan: - Patient will see her neurologist on the to discuss alternative epilepsy medication options. - Continue Depakote until further evaluation by the neurologist. 3. Sleep disturbance: - Patient reports poor sleep quality. Plan: - Encourage the patient to maintain good sleep hygiene and monitor sleep patterns. - Reevaluate sleep quality after the addition of Caplyta and potential changes in epilepsy medication. 4. Social isolation: - Patient is struggling with making connections and forming friendships in her new location. Plan: - Encourage the patient to continue participating in social activities, such as joining Facebook groups and meeting up with people. - Provide support and reassurance during this transitional period. 5. Medication management: - Patient inquires about switching her medication pick-up location to [facility] in [facility]. Plan: - Provide samples of Caplyta to the patient to start the new medication. - Instruct the patient to contact her insurance company to confirm if she can switch her medication pick-up location to [facility] in [facility]. 6. Hormonal imbalance: - Patient had a major estrogen deficit for two years, which has since been corrected. Plan: - Continue monitoring patient's hormonal levels and overall well-being. - Reevaluate the impact of hormonal balance on the patient's mood and mental health. 01/25/2025 Encounter for screening for cardiovascular disorders (ICD-10 - Z13.6) 02/24/2025 Generalized anxiety disorder (ICD-10 - F41.1) hydroxyzine 10mg tid prn 10/26/2024 Encounter for screening for depression (ICD-10 - Z13.31) 08/07/2024 Post-traumatic stress disorder, unspecified (ICD-10 - F43.10) cont counseling 1. Fibromyalgia: - Patient reports starting Lyrica 3 weeks ago and recently had a dose increase. - Initial response was positive with reduced pain and improved sleep. - Patient plans to try acupuncture and maintain a low-inflammato ry diet. Plan: - Continue monitoring the effectiveness of Lyrica. - Consider further adjustments if needed. 2. Depression: - Patient reports feeling stable with no significant depressive symptoms. - Currently on Caplyta 21 mg, which seems to be working well. Plan: - Continue Caplyta at the current dose. - Monitor for any changes in mood or depressive symptoms. 3. Bipolar Disorder: - No recent manic episodes reported. - Patient is on quetiapine ER 100 mg (2 tablets of 50 mg) and Caplyta 21 mg. Plan: - Continue with the current medication regimen. - Monitor for any signs of josué or mood instability. 4. Anxiety: - Patient reports consistent anxiety but is managing it. Plan: - No changes in medication needed at this time. - Continue to monitor anxiety levels. - Consider adjustments to treatment if necessary. 5. Seizure control: - Patient is on Depakote for seizure control. - Neurologist is aware and has indicated that adjustments can be made if needed. - Lyrica also has anti-seizure properties, which may provide additional benefit. Plan: - Continue monitoring for any seizure activity. - Collaborate with the neurologist for any necessary adjustments. 6. Medication refills: Plan: - Send refills for Caplyta 21 mg and quetiapine ER 100 mg (2 tablets of 50 mg) to [facility]. - Consider using [facility] for refills next time. 7. Follow-up: - Schedule a follow-up appointment in approximately 3 months to monitor progress and make any necessary adjustments to the treatment plan. 07/17/2024 Post-traumatic stress disorder, unspecified (ICD-10 - F43.10) cont counseling 1. Bipolar Depression: - Patient is currently on Caplyta 21 mg, which was increased on June 09. - Patient reports some improvement in anxiety but still experiences depression. - Patient prefers to maintain the current dosage. Plan: - Continue Caplyta 21 mg. - Reassess in one month. 2. Anxiety: - Patient reports initial anxiety after increasing Caplyta but has since improved. Plan: - Continue monitoring. - Follow up in one month. 3. Fatigue and difficulty waking up in the morning: - Patient has seen a sheet cutter, desktop administrator , and civil rights attorney for evaluation. - [employer] Prevention Specialist prescribed an allergy pill, which has improved sleep quality. - Patient is currently on quetiapine ER 150 mg. Plan: - Decrease quetiapine to 100 mg (two 50 mg tablets) to assess if this improves morning fatigue. - Reevaluate in one month. 5. Follow-up: Plan: - Schedule a follow-up appointment in one month to assess the patient's response to the decreased quetiapine dosage and ongoing depression management. - Send the quetiapine prescription to [facility] as requested by the patient. 03/24/2024 Post-traumatic stress disorder, unspecified (ICD-10 - F43.10) cont counseling 1. Post-hysterect howard recovery and hormone replacement therapy: - Patient reports improvement in mood, sleep, and hair quality since starting estrogen patch (0.5 mg twice a week). Plan: - Continue estrogen patch and monitor for any side effects or changes in symptoms. 2. Anxiety: - Patient reports reduced anxiety since starting hormone replacement therapy. - Currently on hydroxyzine 10 mg three times a day as needed. Plan: - Continue hydroxyzine as needed and monitor for any changes in anxiety levels. 3. Bipolar disorder: - Patient denies any manic symptoms and reports improvement with Seroquel XR 150 mg. - Lamotrigine has been discontinued. Plan: - Continue Seroquel XR 150 mg and monitor for any changes in mood or bipolar symptoms. Follow-up: - Schedule a follow-up appointment in two months to assess the patient's progress and any changes in symptoms. - Patient will also see a neurologist in May. 07/17/2024 Bipolar I disorder with depression (ICD-10 - F31.9) 1. Bipolar Depression: - Patient is currently on Caplyta 21 mg, which was increased on June 09. - Patient reports some improvement in anxiety but still experiences depression. - Patient prefers to maintain the current dosage. Plan: - Continue Caplyta 21 mg. - Reassess in one month. 2. Anxiety: - Patient reports initial anxiety after increasing Caplyta but has since improved. Plan: - Continue monitoring. - Follow up in one month. 3. Fatigue and difficulty waking up in the morning: - Patient has seen a sheet cutter, desktop administrator , and civil rights attorney for evaluation. - [employer] Specialist prescribed an allergy pill, which has improved sleep quality. - Patient is currently on quetiapine ER 150 mg. Plan: - Decrease quetiapine to 100 mg (two 50 mg tablets) to assess if this improves morning fatigue. - Reevaluate in one month. 5. Follow-up: Plan: - Schedule a follow-up appointment in one month to assess the patient's response to the decreased quetiapine dosage and ongoing depression management. - Send the quetiapine prescription to [facility] as requested by the patient. 08/07/2024 Bipolar I disorder with depression (ICD-10 - F31.9) 1. Fibromyalgia: - Patient reports starting Lyrica 3 weeks ago and recently had a dose increase. - Initial response was positive with reduced pain and improved sleep. - Patient plans to try acupuncture and maintain a low-inflammato ry diet. Plan: - Continue monitoring the effectiveness of Lyrica. - Consider further adjustments if needed. 2. Depression: - Patient reports feeling stable with no significant depressive symptoms. - Currently on Caplyta 21 mg, which seems to be working well. Plan: - Continue Caplyta at the current dose. - Monitor for any changes in mood or depressive symptoms. 3. Bipolar Disorder: - No recent manic episodes reported. - Patient is on quetiapine ER 100 mg (2 tablets of 50 mg) and Caplyta 21 mg. Plan: - Continue with the current medication regimen. - Monitor for any signs of josué or mood instability. 4. Anxiety: - Patient reports consistent anxiety but is managing it. Plan: - No changes in medication needed at this time. - Continue to monitor anxiety levels. - Consider adjustments to treatment if necessary. 5. Seizure control: - Patient is on Depakote for seizure control. - Neurologist is aware and has indicated that adjustments can be made if needed. - Lyrica also has anti-seizure properties, which may provide additional benefit. Plan: - Continue monitoring for any seizure activity. - Collaborate with the neurologist for any necessary adjustments. 6. Medication refills: Plan: - Send refills for Caplyta 21 mg and quetiapine ER 100 mg (2 tablets of 50 mg) to [facility]. - Consider using [facility] for refills next time. 7. Follow-up: - Schedule a follow-up appointment in approximately 3 months to monitor progress and make any necessary adjustments to the treatment plan. 10/26/2024 Encounter for screening for cardiovascular disorders (ICD-10 - Z13.6) 02/24/2025 Post-traumatic stress disorder, unspecified (ICD-10 - F43.10) cont counseling 01/25/2025 Bipolar I disorder with depression (ICD-10 - F31.9) 05/26/2024 Bipolar I disorder with depression (ICD-10 - F31.9) 1. Bipolar depression: - Patient reports feeling consistently low for the past year and experiencing side effects from Depakote, including tremors, weight gain, sedation, and cognitive issues. Plan: - Add Caplyta 10.5 mg for bipolar depression. - Continue quetiapine ER 150 mg as it has been effective. - Monitor patient's response to the new medication and adjust as necessary. 2. Epilepsy: - Patient has a history of epilepsy and is currently on Depakote for seizure control. - Reports cognitive fatigue and side effects from Depakote that contribute to her depression. Plan: - Patient will see her neurologist on the to discuss alternative epilepsy medication options. - Continue Depakote until further evaluation by the neurologist. 3. Sleep disturbance: - Patient reports poor sleep quality. Plan: - Encourage the patient to maintain good sleep hygiene and monitor sleep patterns. - Reevaluate sleep quality after the addition of Caplyta and potential changes in epilepsy medication. 4. Social isolation: - Patient is struggling with making connections and forming friendships in her new location. Plan: - Encourage the patient to continue participating in social activities, such as joining Facebook groups and meeting up with people. - Provide support and reassurance during this transitional period. 5. Medication management: - Patient inquires about switching her medication pick-up location to [facility] in [facility]. Plan: - Provide samples of Caplyta to the patient to start the new medication. - Instruct the patient to contact her insurance company to confirm if she can switch her medication pick-up location to [facility] in [facility]. 6. Hormonal imbalance: - Patient had a major estrogen deficit for two years, which has since been corrected. Plan: - Continue monitoring patient's hormonal levels and overall well-being. - Reevaluate the impact of hormonal balance on the patient's mood and mental health. 01/25/2025 Generalized anxiety disorder (ICD-10 - F41.1) hydroxyzine 10mg tid prn 10/26/2024 Generalized anxiety disorder (ICD-10 - F41.1) hydroxyzine 10mg tid prn 10/26/2024 Post-traumatic stress disorder, unspecified (ICD-10 - F43.10) cont counseling 01/25/2025 Post-traumatic stress disorder, unspecified (ICD-10 - F43.10) cont counseling 10/26/2024 Other 1. Bipolar Disorder: - Patient reports improved mood over the past couple of weeks, attributed to better weather and her son's presence. - Experienced a depressive episode a few weeks ago but has since stabilized. - Current medication regimen includes Caplyta 21 mg and quetiapine 100 mg. - Attends Depression Bipolar Support [place] group meetings occasionally. Plan: - Continue Caplyta 21 mg daily - Continue quetiapine 100 mg daily - Maintain current medication regimen as mood has improved - Consider increasing Caplyta to 42 mg if needed in the future - Encourage continued participation in support group meetings - Follow up in 3 months 2. Fibromyalgia: - Diagnosed with fibromyalgia in late July. - Reports ongoing pain management challenges and difficulty sleeping. - Currently on Lyrica, which initially helped with sleep and pain but is now only decent for pain management. - Patient is learning to manage limitations and recognizes the need for both medication and lifestyle adjustments. Plan: - Continue current fibromyalgia management under primary care physician - Patient to follow up with primary care in a couple of weeks - Continue Lyrica as prescribed for pain management - Educate patient on importance of lifestyle adjustments in conjunction with medication for fibromyalgia management 3. Anxiety: - Patient reports history of anxiety, particularly severe before hysterectomy last year due to hormonal imbalance. - Currently, anxiety is better managed and less prominent. - Has hydroxyzine prescription but rarely uses it due to sedating effects. Plan: - Continue hydroxyzine as needed for anxiety - Encourage non-pharmacolog ical anxiety management techniques 01/25/2025 Other Godfrey Calvert, female, presents with ongoing depression and is currently taking Caplyta for management. Depression Assessment: Patient reports feeling depressed and describes her mood as a low, steady low. She is currently taking Caplyta 21 mg for depression management. The medication appears to be well-tolerated with minimal side effects. However, the patient expresses a desire for improvement in her depressive symptoms, particularly mentioning exhaustion as a persistent issue. Plan: - Increase Caplyta to 42 mg PO at bedtime - Follow-up appointment in approximately one month - Consider potential reduction in Seroquel dosage at next visit Medication Management Assessment: Patient is currently taking Caplyta and Seroquel for management of psychiatric symptoms. The Caplyta dose is being increased due to ongoing depressive symptoms. There is consideration to potentially lower the Seroquel dose in the future to maintain benefits while reducing side effects. 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 It is a reflection of a visit with the patient. It might have some inaccuracy, including medication names and transcribing errors, though efforts have been made to correct them. 02/24/2025 Mario Calvert, a patient with a history of bipolar disorder, epilepsy, and fibromyalgia, presents for medication management and reports recent emotional instability and suicidal ideation following a medication adjustment. Bipolar Disorder Assessment: Patient recently experienced emotional instability, including frequent crying and suicidal ideation, after increasing caplyta from 21 mg to 42 mg. Upon returning to the 21 mg dose, patient reports feeling pretty level and experiencing a good, positive improvement over the past week. This suggests that the 21 mg dose is more appropriate for managing the patient's bipolar symptoms. Plan: - Continue caplyta 21 mg - Continue quetiapine 50 mg, 2 tablets at bedtime - Follow up in 6 weeks, with option to extend to 8 weeks if patient remains stable Epilepsy Assessment: Patient reports consistently low Depakote levels (20-25) over the past year. Despite low levels, patient is not experiencing seizures. Previous provider advised discontinuation of Depakote if seizures are not occurring. Plan: - Discontinue Depakote as per previous provider's recommendation - Monitor for any recurrence of seizures Fibromyalgia Assessment: Patient is currently managing fibromyalgia symptoms with Lyrica prescribed by primary care provider. Plan: - Continue Lyrica as prescribed by primary care provider for fibromyalgia management Attention Deficit Hyperactivity Disorder (ADHD) Assessment: Patient reports ongoing ADHD symptoms, particularly noting organizational difficulties. Patient is currently working with a therapist to address these issues and is hesitant to pursue medication management due to comorbid epilepsy and bipolar disorder. Plan: - Continue working with therapist on ADHD management strategies - Encourage implementation of therapist's suggestions for improving organization Psychosocial Support Assessment: Patient is actively engaged in therapy and implementing coping strategies, including maintaining a gratitude journal and working on establishing a more structured daily schedule to manage bipolar disorder, ADHD, and fibromyalgia symptoms. Plan: - Continue current therapy - Encourage ongoing use of gratitude journal - Support patient's efforts to establish and maintain a structured daily schedule the note is transcribed using speech recognition software. It is a reflection of a visit with the patient. It might have some inaccuracy, including medication names and transcribing errors, though efforts have been made to correct them. Plan Of Treatment Next Appt Details Provider Name:Cristi king, 04/07/2025 02:00:00 PM, [address], [address], [place], [address], Insurance Providers Payer Name Payer Address Payer Phone Subscriber Number Group Number Insured Name Patient Relationship to Insured Coverage Start Date Coverage End Date [place] [address] [place] [address] [phone] [id number] JOSE FJASMIN GODFREY Self - patient is the insured Medical (General) History Medical History History ICD Code Imported from [employer]: Fr om December to March 2024, the patient had multiple encounters with healthcare providers, primarily at [facility] and [facility]. The patient's conditions included a BMI of 23.0-23.9, adult; Herpes zoster without complication; Positive CORRINA (antinuclear antibody), and Endometrial hyperplasia. The patient underwent pre-op evaluation on 12/30/2023, followed by surgery for Endometrial hyperplasia on 01/14/2024, performed by Dr. Lucila Tirado at [facility]. Post-operative pain was reported during an emergency visit on 01/25/2024. Post-op checks were conducted by Dr. Tirado on 02/20/2024 and 03/19/2024. The patient also had several telephone consultations with various providers, including Jemma Medeiros NP, and Rachel Kan RN. Imported from [employer]: Dominic guadarrama Name: CBC with auto differential Date: 2024-01-25 15:04:00 Summary: The patient's hemoglobin level was 14.3 g/dL, within the normal range. The red blood cell count was 4.72, and the white blood cell count was 9.7, both within the normal range. Test Name: Comprehensive metabolic panel Date: 2024-01-25 15:04:00 Summary: The patient's creatinine level was 0.71 mg/dL, within the normal range. However, the ALT level was 146, which is high. The total bilirubin level was 2.7 mg/dL, which is also high. The AST level was 307, which is high. Test Name: CT Abdomen Pelvis W Contrast Date: 2024-01-25 16:29:56 Summary: The CT scan showed postsurgical changes from a recent hysterectomy with small volume loculated pelvic ascites. No suspicious osseous lesions were found. Test Name: Differential, auto Date: 2024-01-25 15:04:00 Summary: The patient's lymphocyte count was low at 0.4, and the neutrophil count was high at 8.5. Test Name: ECG 12 lead Date: 2024-01-26 09:03:09 Summary: The ECG showed a sinus rhythm with a vent rate of 73 bpm. The ECG was borderline with low QRS voltage in precordial leads. Test Name: Hemoglobin A1c Date: 2023-12-30 13:11:00 Summary: The patient's Hgb A1C level was 4.7%, within the normal range. Surgical History Surgery Date(Month/Year) Breast surgery (59978) 10/08/2022 Removal of gallbladder (54280) 1 Other 05/21/2016 Sinus surgery 05/21/2016 Cosmetic surgery 06/12/2021
--- OUTSIDE RECORDS SUMMARY | 2025-03-24 13:02 | XMS_ITS | Patient Health Record ---
Author Organization [employer] ([address]) Address [address] [facility] [address] [place] [address] Care Team Providers Care Pulmonary Care Nurse Name Role Phone Jemma Medeiros Primary Care Provider Hailey Ward Unavailable [phone] Allergies Allergen (clinical drug ingredient) Drug/Non Drug Allergy documented on EMR Reaction Allergy Type Onset Date Status Penicillin (uncoded) rash and vomiting a 3 year of age Allergy Active Results Component Value Reference Range Notes Spirometry Reviewed date: Interpretation:Normal Performing Lab: Notes/Report: Normal SpiroPreBronchodilator_FVC 3.74 SpiroPostBronchodilator_FEF25_75 0 SpiroPreBronchodilator_FEF25_75 2.32 SpiroPreBronchodilator_FEV1 2.8 SpiroPrecentPredictionPost_FEF25_75 0 SpiroPrecentPredictionPost_FEV1 0 SpiroPrecentPredictionPost_FEV1_OVER_FVC 0 SpiroPrecentPredictionPost_FVC 0 SpiroPrecentPredictionPre_FEF25_75 76.8 SpiroPrecentPredictionPre_FEV1 100.7 SpiroPrecentPredictionPre_FEV1_OVER_FVC 91.3 SpiroPrecentPredictionPre_FVC 110.7 SpiroPredicted_FEF25_75 3.02 SpiroPreBronchodilator_FEV1_OVER_FVC 74.79 SpiroPreBronchodilator_PEF 4.98 SpiroPostBronchodilator_FVC 0 SpiroPostBronchodilator_FEV1 0 SpiroPostBronchodilator_FEV1_OVER_FVC 0 SpiroPostBronchodilator_PEF 0 SpiroPredicted_FVC 3.38 SpiroPredicted_FEV1 2.78 SpiroPredicted_FEV1_OVER_FVC 81.9 SpiroPredicted_PEF 6.06 Reason For Referral No Information Medications Medication SIG (Take, Route, Frequency, Duration) Notes Start Date End Date Status Lyrica 150 MG 1 capsule Orally Onc e a day Active Albuterol Sulfate HFA 108 (90 Base) MCG/ACT 1 puff as needed Inhalation every 4 hrs Active Airsupra 90-80 MCG/ACT 2 puffs as needed Inhalation Six times a day Active Azelastine HCl 137 MCG/SPRAY 2 sprays in each nostril Nasally Twice a day; Duration: 30 days Active Levocetirizine Dihydrochloride 5 MG 1 tablet in the evening Orally Once a day; Duration: 30 days Active SEROquel XR 150 MG 1 tablet in the even ing Orally Once a day Active Depakote 250 MG 1 tablet Orally Twic e a day Active Estradiol 0.075 MG/24HR 1 patch to skin Transdermal Two times a Week Active Caplyta 21 MG 2 capsules Orally On a day Active Immunizations Vaccine Route Administration Date Status Comme nts Hepatitis B (20 and more) Unknown 02/09/2015 Administer ed Portal Information NOC Tdap Unknown 02/09/2019 Administered Portal Infor mation Influenza Unknown 05/26/2024 Administered Portal Infor mation Social History Tobacco Use: Social History Observation Description Date Details (start date - stop date) Former Smoker NA - NA Tobacco Control (Standard) Question Answer Notes Tobacco use: Former smoker How long has it been since you last smoked? Grea ter than 10 years Problems Problem Type SNOMED Code ICD Code Onset Dates Problem Status W/U Status Risk Notes Problem Chronic allergic conjunctivitis (99153381) Other chronic allergic conjunctivitis (H10.45) Active confirmed Problem Allergic rhinitis caused by pollen (disorder) (60499779) Allergic rhinitis due to pollen (J30.1) Active confirmed Problem Other allergic rhinitis (J30.89) Active confirmed Problem Allergic rhinitis caused by animal hair and dander ([id number]) Allergic rhinitis due to animal (cat) (dog) hair and dander (J30.81) Active confirmed Problem Allergy to penicillin (91475497) Allergy status to penicillin (Z88.0) Active confirmed Vital Signs Blood pressure diastolic 75 mm Hg 09/02/2024 Oximetry 99 % 09/02/2024 Height 64 in 09/02/2024 Blood pressure systolic 111 mm Hg 09/02/2024 Weight 148.4 lbs 09/02/2024 BMI 25.47 kg/m2 09/02/2024 Encounters Encounter Location Date Provider Diagnosis [address] [address] 09/02/2024 Hailey Sena Allergic rhinitis du e to pollen J30.1 ; Chronic cough R05.3 ; Allergic rhinitis due to animal (cat) (dog) hair and dander J30.81 ; Allergy status to penicillin Z88.0 ; Other allergic rhinitis J30.89 and Other chronic allergic conjunctivitis H10.[address] [address] 06/17/2024 Hailey Sturm Allergic rhinitis du e to pollen J30.1 ; Chronic cough R05.3 ; Allergic rhinitis due to animal (cat) (dog) hair and dander J30.81 ; Allergy status to penicillin Z88.0 ; Other allergic rhinitis J30.89 and Other chronic allergic conjunctivitis H10.45 Assessments Encounter Date Diagnosis (ICD Code) Assessment Notes Treatment Notes Treatment Clinical Notes Section Notes 06/17/2024 Allergic rhinitis due to pollen (ICD-10 - J30.1) Given the history and symptoms, skin testing was performed to common aeroallergens to determine atopic status. Alison Mcqueen clearly suffers from atopic disease based upon our skin testing and clinical history. Accordingly, we have introduced a new, aggressive medication regimen, discussed nasal washes and allergy-specific avoidance measures. We also discussed adjunctive therapies including subcutaneous, specific allergen immunotherapy as relates to the treatment and prevention of atopic disease. She is currently considering the risks, benefits and alternatives to this care. Risks: bleeding, infection, allergic reaction, anaphylaxis; Benefits: reduced need for medications, improved symptoms, disease modification. Alternatives: watch/wait, change medication regimen, improve allergy avoidance measures. Follow-up in 1 month for interval evaluation and management 06/17/2024 Chronic cough (ICD-10 - R05.3) Spirometry today is normal. ACT 10. Recommend starting Air Supra which was prescribed by PCP earlier this week. 09/02/2024 Allergic rhinitis due to pollen (ICD-10 - J30.1) Alison Mcqueen clearly suffers from atopic disease based upon our skin testing and clinical history. Accordingly, we have introduced a new, aggressive medication regimen, discussed nasal washes and allergy-specific avoidance measures. We also discussed adjunctive therapies including subcutaneous, specific allergen immunotherapy as relates to the treatment and prevention of atopic disease. At this time she feels she is receiving improvement with Astelin and Xyzal. 09/02/2024 Chronic cough (ICD-10 - R05.3) Spirometry at her initial visit is normal. ACT 20. Well controlled with AirSupra 09/02/2024 Allergic rhinitis due to animal (cat) (dog) hair and dander (ICD-10 - J30.81) Follow allergen avoidance, meds and consider SCIT as an adjunctive treatment to current regimen 06/17/2024 Allergic rhinitis due to animal (cat) (dog) hair and dander (ICD-10 - J30.81) Follow allergen avoidance, meds and consider SCIT as an adjunctive treatment to current regimen 06/17/2024 Allergy status to penicillin (ICD-10 - Z88.0) Alison Mcqueen has a history of rash in childhood after taking penicillin. Consider future penicillin skin testing and amoxicillin challenge. 09/02/2024 Allergy status to penicillin (ICD-10 - Z88.0) Alison Mcqueen has a history of rash in childhood after taking penicillin. Consider future penicillin skin testing and amoxicillin challenge. 06/17/2024 Other allergic rhinitis (ICD-10 - J30.89) 09/02/2024 Other allergic rhinitis (ICD-10 - J30.89) 09/02/2024 Other chronic allergic conjunctivitis (ICD-10 - H10.45) Given ocular signs and symptoms I encouraged allergy avoidance measures and meds as above. If symptoms persist, consider adding additional medications including intraocular antihistamine/mas t cell stabilizer, PRN 06/17/2024 Other chronic allergic conjunctivitis (ICD-10 - H10.45) Given ocular signs and symptoms I encouraged allergy avoidance measures and meds as above. If symptoms persist, consider adding additional medications including intraocular antihistamine/mas t cell stabilizer, PRN Plan Of Treatment No Information Insurance Providers Payer Name Payer Address Payer Phone Subscriber Number Group Number Insured Name Patient Relationship to Insured Coverage Start Date Coverage End Date [place] [address] [place] [id number] Nadeem Calvert Spouse - patient is the spouse of the insured 4 Medical (General) History Medical History History ICD Code epilepsy depression bipolar disorder Fibromyalgia Surgical History Surgery Date(Month/Year) 05/01/1995 03/31/1998 Surgery, placed 3 pins in left hand for 3 broken bones 07/01/2000 10/10/2009 Cholecystectomy 02/09/2011 Sinus surgery, shrunk turbinates deviate d septum right nostril block 04/12/2017 Abdominoplasty/ breast lift & augmentati on 06/12/2021 Breast surgery 10/08/2022 Hysterectomy 01/14/2024 Salpingectomy 04/26/2022 Hospitalization History Reason Date(Month/Year) see above
--- OUTSIDE RECORDS SUMMARY | 2025-03-24 13:02 | XMS_ITS ---
Author Organization [facility] [employer] [place] ([address]) Address [address] [place] [address] Care Team Providers Care Mcat Tutor Name Role Phone Jemma Medeiros Primary Care Provider Hailey Ward Unavailable [phone] REASON FOR VISIT Asthma follow-up - improvement with AirSupra Medications Medication SIG (Take, Route, Frequency, Duration) Notes Start Date End Date Status Lyrica 150 MG 1 capsule Orally Onc e a day Active Albuterol Sulfate HFA 108 (90 Base) MCG/ACT 1 puff as needed Inhalation every 4 hrs Active SEROquel XR 150 MG 1 tablet in the even ing Orally Once a day Active Estradiol 0.075 MG/24HR 1 patch to skin Transdermal Two times a Week Active Caplyta 21 MG 2 capsules Orally On ce a day Active Airsupra 90-80 MCG/ACT 2 puffs as needed Inhalation Six times a day Active Azelastine HCl 137 MCG/SPRAY 2 sprays in each nostril Nasally Twice a day; Duration: 30 days Active Levocetirizine Dihydrochloride 5 MG 1 tablet in the evening Orally Once a day; Duration: 30 days Active Depakote 250 MG 1 tablet Orally Twic e a day Active Encounters Encounter Location Date Provider Diagnosis [facility] [address] [facility] [address] [place] [address] 03/03/2025 Hailey Sena Allergic rhinitis du e to pollen J30.1 ; Chronic cough R05.3 ; Allergic rhinitis due to animal (cat) (dog) hair and dander J30.81 ; Allergy status to penicillin Z88.0 ; Other allergic rhinitis J30.89 and Other chronic allergic conjunctivitis H10.45 Assessments Encounter Date Diagnosis (ICD Code) Assessment Notes Treatment Notes Treatment Clinical Notes Section Notes 03/03/2025 Allergic rhinitis due to pollen (ICD-10 - [...] is receiving improvement with Astelin and Xyzal. 03/03/2025 Chronic cough (ICD-10 - R05.3) Spirometry at her initial visit is normal. ACT 20. Well controlled with AirSupra 03/03/2025 Allergic rhinitis due to animal (cat) (dog) hair and dander (ICD-10 - J30.81) Follow allergen avoidance, meds and consider SCIT as an adjunctive treatment to current regimen 03/03/2025 Allergy status to penicillin (ICD-10 - Z88.0) Alison Mcqueen has a history of rash in childhood after taking penicillin. Consider future penicillin skin testing and amoxicillin challenge. 03/03/2025 Other allergic rhinitis (ICD-10 - J30.89) 03/03/2025 Other chronic allergic conjunctivitis (ICD-10 - H10.45) Given ocular signs and symptoms I encouraged allergy avoidance measures and meds as above. If symptoms persist, consider adding additional medications including intraocular antihistamine/mas t cell stabilizer, PRN Plan Of Treatment Medication Medication Name Sig Start Date Stop Date Notes Airsupra 90-80 MCG/ACT 2 puffs as needed Inhalation Six times a day Azelastine HCl 137 MCG/SPRAY 2 sprays in each nostril Nasally Twice a day; Duration: 30 days Levocetirizine Dihydrochlori de 5 MG 1 tablet in the evening Orally Once a day; Duration: 30 days Treatment Notes Assessment Notes Allergic rhinitis due to pollen Alison Mcqueen clearly suffers from atopic disease [...] is receiving improvement with Astelin and Xyzal. Chronic cough Spirometry at her in itial visit is normal. ACT 20. Well controlled with AirSupra Allergic rhinitis due to ani mal (cat) (dog) hair and dander Follow allergen avoidance, meds and consider SCIT as an adjunctive treatment to current regimen Allergy status to penicillin Alison Mcqueen has a history of rash in childhood after taking penicillin. Consider future penicillin skin testing and amoxicillin challenge. Other chronic allergic conjunctivitis Gi tito ocular signs and symptoms I encouraged allergy avoidance measures and meds as above. If symptoms persist, consider adding additional medications including intraocular antihistamine/mast cell stabilizer, PRN Next Appt Details Follow Up: 6 Months, Reason: Spirometry/Flow Volume Loop Progress Notes * Alison CALVERTaDOB:1974 (50 yo F)Acc No.[id number]:03/03/2025 Progress Notes Patient: Alison ORDAZ Provider: Dayana Sena MD :1975 A ge:50 Y S ex:Female Date:03/03/2025 Address:[address] [place], [place] [id number] Pcp:Jemma Medeiros Subjective: * Chief Complaints: * 1 . Asthma follow-up - improvement with AirSupra. * HPI: * Introduction: HPI: Desirae Calvert, a 49 year old with allergic rhinitis and chronic sinusitis presenting for evaluation of allergic rhinitis and cough. She is alone for today's visit. I mprovement in nasal congestion, rhinorrhea with Xyzal and Astelin. No interval sinusitis. She started Air Supra with improvement in shortness of breath. She is using Air Supra about once a week. For about 1 year, she has required albuterol for wheezing which starts later in the day and before bed. She wakes at 6 am with chest tightness. Above symptoms increased in Spring and Fall season. No prior history of asthma. She was prescribed Air Supra by her PCP last year for above symptoms with improvement. S he moved to [place] about 18 months ago from [place] and previously lived in [place]. She has a history of recurrent otitis and rhinitis and received immunotherapy in childhood in [place]. Sinus surgery was performed in 2017 with turbinate reduction. Repair of deviated septum. She has 2 cats in her home. T shyam, she reports no fevers, chills, night sweats or other constitutional symptoms. * ROS: A LLERGY: Positive p er the HPI and history, otherwise unremarkable.? S PECIAL SENSES: Positve for n one. C ONSTITUTIONAL: Positive for n one. E NT: Positive p er the HPI and history, otherwise unremarkable.? R ESPIRATORY: Positive p er the HPI and history, otherwise unremakable.? O PHTHALMOLOGY: Positive for p er the HPI and history, otherwise unremarkable. E NDOCRINOLOGY: Positive for n one. C ARDIOLOGY: Positive for n one. G ASTROENTEROLOGY: Positive for n one. U ROLOGY: Positive for n one. D ERMATOLOGY: Positive for p er the HPI and history, otherwise unremakable. N EUROLOGY: Positive for n one. H EMATOLOGY/LYMPH: Positive for n one. M USCULOSKELETAL: Positive for n one. P SYCHOLOGY: Positive for n one. A ll other review of systems per the HPI and history, otherwise unremarkable. * Medical History: * Medications: T lenora Levocetirizine Dihydrochloride 5 MG Tablet 1 tablet in the evening Orally Once a day , Taking Azelastine HCl 137 MCG/SPRAY Solution 2 sprays in each nostril Nasally Twice a day , Taking Lyrica 150 MG Capsule 1 capsule Orally Once a day , Taking Albuterol Sulfate HFA 108 (90 Base) MCG/ACT Aerosol Solution 1 puff as needed Inhalation every 4 hrs , Taking Estradiol 0.075 MG/24HR Patch Twice Weekly 1 patch to skin Transdermal Two times a Week , Taking Caplyta 21 MG Capsule 2 capsules Orally Once a day , Taking SEROquel XR 150 MG Tablet Extended Release 24 Hour 1 tablet in the evening Orally Once a day , Taking Depakote 250 MG Tablet Delayed Release 1 tablet Orally Twice a day , Taking Airsupra 90-80 MCG/ACT Aerosol 2 puffs as needed Inhalation Six times a day Objective: * Vitals: * Examination: G eneral examination: General appearance: p leasant, well-developed, well-nourished. HEENT: conjunctiva are clear bilaterally, no tenderness to palpation of the sinuses, TM's without evidence of acute infection, turbinates 2+ swollen and pale inferiorly bilaterally, clear rhinorrhea is present, no polyps noted, no septal perforation, posterior oropharynx is clear, no exudates, no tongue swelling, and uvula is midline. Oral cavity: n ormal, no lesions. Neck, thyroid : s upple, non-tender, no anterior cervical lymphadenopathy. Breasts : n ot performed. Heart: R RR, S1-S2, no murmurs, no rubs, no gallops. Lungs: c lear to auscultation and percussion in all lung lanier, no wheezes or crackles. Neurologic exam: u nremarkable. Skin: n ormal, no rash, dermatographism, urticaria, angioedema. Peripheral pulses: n ormal (2+) bilaterally. Back: n ormal. Extremities: n ormal ROM, no clubbing, no cyanosis, no edema. Genitalia: n ot performed. Assessment: * Assessment: 1. A llergic rhinitis due to pollen - J30.1 (Primary) 2 . C hronic cough - R05.3 3 . A llergic rhinitis due to animal (cat) (dog) hair and dander - J30.81? 4. A llergy status to penicillin - Z88.0 5 . O ther allergic rhinitis - J30.89 6 . O ther chronic allergic conjunctivitis - H10.45 ? Plan: * Treatment: 2. C hronic cough Continue Airsupra Aerosol, 90-80 MCG/ACT, 2 puffs as needed, Inhalation, Six times a day. ? Notes: Spirometry at her initial visit is normal. ACT 20. Well controlled with AirSupra 3. A llergic rhinitis due to animal (cat) (dog) hair and dander Notes: Follow allergen avoidance, meds and consider SCIT as an adjunctive treatment to current regimen 4. A llergy status to penicillin Notes: Alison Mcqueen has a history of rash in childhood after taking penicillin. Consider future penicillin skin testing and amoxicillin challenge. 5. O ther chronic allergic conjunctivitis Notes: Given ocular signs and symptoms I encouraged allergy avoidance measures and meds as above. If symptoms persist, consider adding additional medications including intraocular antihistamine/mast cell stabilizer, PRN * Procedure Codes: 9 6160 PT-FOCUSED HLTH RISK ASSMT, G8427 DOC MEDS VERIFIED W/PT OR RE * Preventive Medicine: Counseling: M edication instruction: W atch for side effects of prescribed medications, Nasal steroid/antihistamine instruction: avoid septum. E ducation: G ENERAL EDUCATION: Our staff spent an additional 30 minutes in direct contact with the patient educating them on their current diagnoses and proper treatment and prevention of symptoms and the proper use of medications. E ducation 2: A RC EDUCATION: Our staff discussed the appropriate allergen avoidance measures and medication utilization including upper airway hygiene with daily nasal washes given the patient's clinical status and diagnoses. SCIT EDUCATION: Discussed allergy immunotherapy including the relative risks, benefits and alternatives to this treatment as an adjunctive measure to current therapy, Allergy Immunotherapy: Risks: bleeding, infection, allergic reaction, anaphylaxis = severe allergic reaction that can cause ; Benefits: reduced need for medications, improved symptoms, disease modification. Alternatives: watch/wait, change medication regimen, improve allergy avoidance measures, Our staff discussed the warning signs of anaphylaxis and the indications to use self-injectable epinephrine and seek urgent or emergent care. P atient education material sent to portal? Y es * Follow Up: 6 Months (Reason: Spirometry/Flow Volume Loop) * Billing Information: * Visit Code: 95187 Office Visit, Est Pt., Level 4. Modifiers: 25 * Procedure Codes: 78491 PT-FOCUSED HLTH RISK ASSMT. G8427 DOC MEDS VERIFIED W/PT OR RE. * Electronic signature of Nesha Sena MD on 03/24/2025 at 01:02 PM CDT Sign off status: Pending * Provider: Dayana Sena MD Date: 03/03/2025 Generated for Maci acevedo/Zahra/Christelsmitting on: 03/24/2025 01:02 PM CDT History and Physical Notes * HPI (History of Present Illness) Category Sub-Category Detail Notes Category Not es *Introduction HPI: Alison masterson, a 49 year old with allergic rhinitis and chronic sinusitis presenting for evaluation of allergic rhinitis and cough. She is alone for today's visit. Improvement in nasal congestion, rhinorrhea with Xyzal and Astelin. No interval sinusitis. She started Air Supra with improvement in shortness of breath. She is using Air Supra about once a week. For about 1 year, she has required albuterol for wheezing which starts later in the day and before bed. She wakes at 6 am with chest tightness. Above symptoms increased in Spring and Fall season. No prior history of asthma. She was prescribed Air Supra by her PCP last year for above symptoms with improvement. She moved to [place] about 18 months ago from [place] and previously lived in [place]. She has a history of recurrent otitis and rhinitis and received immunotherapy in childhood in [place]. Sinus surgery was performed in 2017 with turbinate reduction. Repair of deviated septum. She has 2 cats in her home. Today, she reports no fevers, chills, night sweats or other constitutional symptoms Examination Category Sub-Category Detail Notes Category Not es General examination HEENT: conjunctiva are clear bilaterally, no tenderness to palpation of the sinuses, TM's without evidence of acute infection, turbinates 2+ swollen and pale inferiorly bilaterally, clear rhinorrhea is present, no polyps noted, no septal perforation, posterior oropharynx is clear, no exudates, no tongue swelling, and uvula is midline Neck, thyroid : supple, non-tender, no anterior cervical lymphadenopathy Heart: RRR, S1-S2, no murmu rs, no rubs, no gallops Lungs: clear to auscultatio n and percussion in all lung lanier, no wheezes or crackles Abdomen: Extremities: normal ROM, no clubb ing, no cyanosis, no edema General appearance: pleasant, well-devel oped, well-nourished Skin: normal, no rash, lottie matographism, urticaria, angioedema Neurologic exam: unremarkable Oral cavity: normal, no lesions Breasts : not performed Peripheral pulses: normal (2+) bilatera lly Back: normal Genitalia: not performed
--- OUTSIDE RECORDS SUMMARY | 2025-03-24 13:02 | XMS_ITS | Patient Health Record ---
Author Organization [facility] Address [address] [place] [address] Care Team Providers Care Saw Man Name Role Phone Jose Guadalupe Evans Primary Care Provider UnavailFrancesco Patel Unavailable [phone] Allergies Allergen (clinical drug ingredient) Drug/Non Drug Allergy documented on EMR Reaction Allergy Type Onset Date Status penicillin G Penicillin G Potassium Unknown Drug Allergy Active sulfacetamide Sulfacetamide Sodium Unknown Drug Allergy Active Reason For Referral No Information Medications Medication SIG (Take, Route, Frequency, Duration) Notes Start Date End Date Status LaMICtal 150 MG 1 tablet Orally Once a day Active SEROquel XR 150 MG 1 tablet in the even ing Orally Once a day; Duration: 30 day(s) Active Keppra 1000 MG 1 po Orally Twice a day; Duration: 90 days Active levETIRAcetam 1000 MG TAKE 1 TABLET BY M OUTH EVERY 12 HOURS FOR 90 DAYS; Duration: 90 Active SEROquel 25 MG 1 tablet at bedtime Orally Once a day Not-Taking Social History Tobacco Use: Social History Observation Description Date Details (start date - stop date) Never Smoker NA - NA Non smoking Question Answer Notes Are you a nonsmoker Alcohol Screen (Audit-C) Question Answer Notes Did you have a drink containing alcohol in the p ast year? No Points 0 Interpretation Negative Tobacco use other than smoking: Question Answer Notes Are you an other tobacco user? No Problems Problem Type SNOMED Code ICD Code Onset Dates Problem Status W/U Status Risk Notes Problem Anxiety state (951757423) Anxiety unspecified (300.00) Active confirmed Problem Depressive disorder (11474701) Depression disorder, not elsewhere classified (311) Active confirmed Problem Seizure (41803742) Seizures (780.39) Active confirmed Problem Major depression, single episode (66154031) Major depressive disorder, single episode, unspecified (F32.9) Active confirmed Problem Anxiety disorder (851157144) Anxiety disorder, unspecified (F41.9) Active confirmed Problem Amnesia (23193287) Other amnesia (R41.3) Active confirmed Problem Seizure disorder (309364394) Seizure disorder (G40.909) Active confirmed Problem Mild cognitive disorder (225891231) Mild cognitive disorder (F09) Active confirmed Problem Epilepsy (18092635) Convulsions, epileptic (G40.909) Active confirmed Problem Breakthrough seizure (G40.919) Active confirmed Problem Bipolar 1 disorder (472054696) Bipolar 1 disorder (F31.9) Active confirmed Problem 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, 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 Plan Of Treatment Pending Test Test Name Order Date Vitamin B12 and Folate 04/25/2018 Levetiracetam, S 10/18/2015 Folate 04/15/2018 Lamotrigine 06/03/2020 Levetiracetam (Keppra) 06/03/2020 Insurance Providers Payer Name Payer Address Payer Phone Subscriber Number Group Number Insured Name Patient Relationship to Insured Coverage Start Date Coverage End Date [employer] [address] [place]MAN [id number] Angel Calvert Self - patient is the insured Medical (General) History Medical History History ICD Code Seizures 780.39 Depression disorder, not elsewhere class ified 311 Anxiety unspecified 300.00 Bipolar 1 disorder F31.9 Surgical History Surgery Date(Month/Year) GALL BLADDER
[2025-03-24 13:16] LABS: Hematocrit 41.4 % (37.0-47.0); Hemoglobin 14.2 g/dL (12.0-15.0); Immature Granulocyte Percent A 0.3 % (0-0.5); Lymphocytes Absolute Auto 0.68 K/mm3 (0.9-3.2); Mean Corpuscular HGB Conc 34.3 g/dl (32-36); Mean Corpuscular Hemoglobin 29.5 pg (26-34); Mean Corpuscular Volume 85.9 fl (80-100); Nucleated Red Blood Cells Absolute Auto 0.000 K/mm3 (0.0-0.012); Nucleated Red Blood Cells Perc 0.0 % (0.0-0.2); Platelet Count Result 160 k/mm3 (150-375); Red Blood Count 4.82 M/mm3 (4.2-5.4); White Blood Count 3.5 K/mm3 (4.5-10.0)
[2025-03-24 13:20] LABS: Blood Urea Nitrogen 11 mg/dL (8-26); Carbon Dioxide 26 mmol/L (22-30); Chloride 104 mmol/L (98-109); Estimated Glomerular Filt Rate > 60; Glucose 78 mg/dL (70-105); Ionized Calcium (POC) 1.26 mmol/L (1.11-1.31); Potassium 4.3 mmol/L (3.5-4.9); Sodium 138 mmol/L (138-146)
[2025-03-24 13:58] LABS: Alanine Aminotransferase 16 U/L (6-35); Albumin Level 4.3 g/dL (3.5-5.1); Alkaline Phosphatase 77 U/L (38-126); Anion Gap 8 mmol/L (4-12); Aspartate Amino Transferase 25 U/L (14-36); Bilirubin,Total 1.0 mg/dL (0.2-1.3); Blood Urea Nitrogen 12 mg/dL (7-17); Calcium 9.6 mg/dL (8.4-10.2); Carbon Dioxide 25 mmol/L (22-30); Chloride 105 mmol/L (98-107); Estimated Glomerular Filt Rate > 60; Glucose 79 mg/dL (65-110); Potassium 4.4 mmol/L (3.4-5.0); Sodium 138 mmol/L (137-145); Total Protein 7.5 g/dL (6.3-8.2)
== END 2025-03-24 12:58 | disposition home or self-care (01) ==
LOC: ANHLAB 12:58
PROVIDERS: PCP Internal Medicine; Visit Provider Internal Medicine Hematology & Oncology
DX: D64.9 Anemia, unspecified (principal)
CPT/HCPCS: 36415; 80047; 80053; 85025

== ENCOUNTER 2025-03-29 16:26 | Emergency (ER) | payer OTHER, SELFPAY ==
--- OUTSIDE RECORDS SUMMARY | 2025-03-29 16:29 | XMS_ITS | Patient Health Record ---
Author Organization [facility] As [facility] Address [address] [facility] [address] [place] [address] Care Team Providers Care Command Center Analyst Name Role Phone Jemma Drake Primary Care Provider Cristi Dumont Unavailable [phone] Allergies Allergen (clinical drug ingredient) Drug/Non Drug [...] Status Risk Notes Problem Generalized anxiety disorder (08008334) Generalized anxiety disorder (F41.1) Active confirmed Problem Post-traumatic stress disorder (41229718) Post-traumatic stress disorder, unspecified (F43.10) Active confirmed Problem Bipolar disorder (20501154) Bipolar I disorder with depression (F31.9) Active confirmed Vital Signs Heart Rate 83 /min 02/24/2025 Height-cm 162.56 cm 02/24/2025 Blood pressure diastolic 78 mm Hg 02/24/2025 Weight-kg 71.21 kg 02/24/2025 Height 64.00 in 02/24/2025 Blood pressure systolic 117 mm Hg 02/24/2025 Weight 157 lbs 02/24/2025 BMI 26.95 kg/m2 02/24/2025 Encounters Encounter Location Date Provider Diagnosis [facility] [employer] [place] [address] [place] [address] 05/26/2024 Cristi Gardner Generalized anxiety disorder F41.1 ; Post-traumatic stress disorder, unspecified F43.10 and Bipolar I disorder with depression F31.9 [facility] [employer] [place] [address] [place] [address] 07/17/2024 Cristi Gardner Generalized anxiety disorder F41.1 ; Post-traumatic stress disorder, unspecified F43.10 and Bipolar I disorder with depression F31.9 [facility] [employer] [place] [address] [place] [address] 08/07/2024 Cristi Gardner Generalized anxiety disorder F41.1 ; Post-traumatic stress disorder, unspecified F43.10 and Bipolar I disorder with depression F31.9 [facility] [employer] [place] [address] [place] [address] 10/26/2024 Cristi Gardner Bipolar I disorder w ith depression F31.9 ; Encounter for screening for depression Z13.31 ; Encounter for screening for cardiovascular disorders Z13.6 ; Generalized anxiety disorder F41.1 and Post-traumatic stress disorder, unspecified F43.[address] [facility] [address] [place] [address] 01/25/2025 Cristi Gardner Encounter for screen ing for depression Z13.31 ; Encounter for screening for cardiovascular disorders Z13.6 ; Bipolar I disorder with depression F31.9 ; Generalized anxiety disorder F41.1 and Post-traumatic stress disorder, unspecified F43.10 [employer] [place] [address] [place] [address] 02/24/2025 Cristi Gardner Bipolar I disorder w ith depression F31.9 ; Generalized anxiety disorder F41.1 and Post-traumatic stress disorder, unspecified F43.10 [facility] [address] [place] [address] 06/30/2024 Cristi Gardner Bipolar I disorder w ith depression F31.9 [facility] [address] [facility] [address] [place] [address] 06/03/2024 Cristi Gardner [facility] [address] [facility] [address] [place] [address] 06/09/2024 Cristi Gardner Bipolar I disorder w ith depression F31.9 Assessments Encounter Date Diagnosis (ICD Code) Assessment Notes Treatment Notes Treatment Clinical Notes Section Notes 06/09/2024 Bipolar I disorder with depression (ICD-10 [...] the morning: - Patient has seen a flight operations dispatch clerk, pegger dobby looms , and vice president residential solar sales for evaluation. - Mental Health Tech prescribed an allergy pill, which has improved [...] management. - Send the quetiapine prescription to [facility] as requested by the patient. 08/07/2024 Generalized [...] mg (2 tablets of 50 mg) to [facility]. - Consider using [facility] for refills next time. 7. Follow-up: - Schedule a follow-up appointment in approximately 3 months to monitor progress and make any necessary adjustments to the treatment plan. 05/26/2024 Generalized anxiety disorder (ICD-10 - F41.1) [...] about switching her medication pick-up location to [facility] in [facility]. Plan: - Provide samples of Caplyta to the patient to start the new medication. - Instruct the patient to contact her insurance company to confirm if she can switch her medication pick-up location to [facility] in [facility]. 6. Hormonal imbalance: - Patient had a major estrogen deficit for two years, which has since been corrected. Plan: - Continue monitoring patient's hormonal levels and overall well-being. - Reevaluate the impact of hormonal balance on the patient's mood and mental health. 10/26/2024 Bipolar I disorder with depression (ICD-10 - F31.9) 01/25/2025 Encounter for screening for depression (ICD-10 - Z13.31) 02/24/2025 Bipolar I disorder with depression (ICD-10 - F31.9) 02/24/2025 Generalized anxiety disorder (ICD-10 - F41.1) hydroxyzine 10mg tid prn 01/25/2025 Encounter for screening for cardiovascular disorders (ICD-10 - Z13.6) 05/26/2024 Post-traumatic stress disorder, unspecified (ICD-10 - [...] about switching her medication pick-up location to [facility] in [facility]. Plan: - Provide samples of Caplyta to the patient to start the new medication. - Instruct the patient to contact her insurance company to confirm if she can switch her medication pick-up location to [facility] in [facility]. 6. Hormonal imbalance: - Patient had a major estrogen deficit for two years, which has since been corrected. Plan: - Continue monitoring patient's hormonal levels and overall well-being. - Reevaluate the impact of hormonal balance on the patient's mood and mental health. 10/26/2024 Encounter for screening for depression (ICD-10 [...] mg (2 tablets of 50 mg) to [facility]. - Consider using [facility] for [...] the morning: - Patient has seen a flight operations dispatch clerk, pegger dobby looms , and vice president residential solar sales for evaluation. - Mental Health Tech prescribed an allergy pill, which has improved [...] management. - Send the quetiapine prescription to [facility] as requested by the patient. 07/17/2024 Bipolar I disorder with depression (ICD-10 [...] the morning: - Patient has seen a flight operations dispatch clerk, pegger dobby looms , and vice president residential solar sales for evaluation. - Mental Health Tech prescribed an allergy pill, which has improved [...] management. - Send the quetiapine prescription to [facility] as requested by the patient. 08/07/2024 Bipolar [...] mg (2 tablets of 50 mg) to [facility]. - Consider using [facility] for refills next time. 7. Follow-up: - Schedule a follow-up appointment in approximately 3 months to monitor progress and make any necessary adjustments to the treatment plan. 10/26/2024 Encounter for screening for cardiovascular disorders (ICD-10 - Z13.6) 05/26/2024 Bipolar I disorder with depression (ICD-10 [...] about switching her medication pick-up location to [facility] on . Plan: - Provide samples of Caplyta to the patient to start the new medication. - Instruct the patient to contact her insurance company to confirm if she can switch her medication pick-up location to [facility] on . 6. Hormonal imbalance: - Patient had a major estrogen deficit for two years, which has since been corrected. Plan: - Continue monitoring patient's hormonal levels and overall well-being. - Reevaluate the impact of hormonal balance on the patient's mood and mental health. 01/25/2025 Bipolar I disorder with depression (ICD-10 - F31.9) 02/24/2025 Post-traumatic stress disorder, unspecified (ICD-10 - F43.10) cont counseling 01/25/2025 Generalized anxiety disorder (ICD-10 - F41.1) [...] 100 mg. - Attends Depression Bipolar Support [place] group meetings occasionally. 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 [facility] - Reassess medication efficacy and side effects [...] Details Provider Name:Cristi king, 04/07/2025 02:00:00 PM, [facility] [address], [place], [address], Insurance Providers Payer Name Payer Address Payer Phone Subscriber Number Group Number Insured Name Patient Relationship to Insured Coverage Start Date Coverage End Date [facility] [address] [place] [address] [phone] [id number] GODFREY CALVERT Self - patient is the insured Medical (General) History Medical History History ICD Code Imported from [facility]: om December to March 2024, the patient had multiple encounters with healthcare providers, primarily at [facility] and [facility]. The patient's conditions included a BMI of 23.0-23.9, adult; Herpes zoster without complication; Positive CORRINA (antinuclear antibody), and Endometrial hyperplasia. The patient underwent pre-op evaluation on 12/30/2023, followed by surgery for Endometrial hyperplasia on 01/14/2024, performed by Dr. Lucila Tirado at [facility]. Post-operative pain was reported during an emergency visit on 01/25/2024. Post-op checks were conducted by Dr. Tirado on 02/20/2024 and 03/19/2024. The patient also had several telephone consultations with various providers, including Jemma Medeiros NP, and Rachel Kan RN. Imported from Highlights: Dominic guadarrama Name: CBC with auto differential [...] range. Surgical History Surgery Date(Month/Year) Breast surgery () 10/08/2022 Removal of gallbladder (75575) 1 Other 05/21/2016 Sinus surgery 05/21/2016 Cosmetic surgery 06/12/2021
--- OUTSIDE RECORDS SUMMARY | 2025-03-29 16:29 | XMS_ITS | Clinical Summary ---
Author Organization [facility] Address [address] [place] [address] Phone Care Team Providers Care Oven Tender Name Role Phone Jemma Medeiros NP Primary Care Provider [phone] Arleth Mckeon MD Unavailable [phone] Allergies Active Allergy Reactions Criticality Noted Date [...] 07/18/2023 Assessment & Plan (07/18/2023 2:17 PM COD CLERK): May have increase in symptoms, no RD/RT, recommend observation. 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 Return in 9 months with fundus photos and B scan (unable to reliably find lesion on A-scan). Assessment & Plan (04/09/2024 1:37 PM CDT): Initial dx in 2015 and had been following with [facility] for serial monitoring, re-established care in [facility] The mass appears stable. Return in 6 months with fundus photos and B scan (unable to reliably find lesion on A-scan). Assessment & Plan (07/18/2023 2:05 PM COD CLERK): Initial dx in 2015 and had been following with [facility] for serial monitoring, re-established care in [place] 2022. The mass appears stable. Return in 6 months with fundus photos and B scan. Assessment & Plan (01/10/2023 4:24 PM CDT): Initial dx in 2015 and had been following with [facility] for serial monitoring, recently yearly, most recently 08/2022. Patient moving to [place]. The choroidal mass is peripheral and small [...] 025 Assessment & Plan (06/15/2024 1:35 PM COD CLERK): Weight/BMI is in healthy range. Continue healthy lifestyle to maintain. 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 03/10/2024 Other seizures 06/12/2021 03/10/2024 Encounters Date Type Department Care Team Description 03/10/2025 Orders Only [facility] Neuro Sleep [address] [facility] 6th Floor [address] [place] [address] Kelle Guillaume RN Excessive daytime sleepiness (Primary Dx) 03/05/2025 Telephone [facility] Epilepsy [address] [place] [address] Teto Welsh MD PhD 03/05/2025 Telephone [facility] [place] [facility] [address] [place] [address] [place] [address] Jemma Medeiros NP Forms Request 03/02/2025 3:30 PM CDT Office Visit [facility] [place] [facility] [address] [place] [address] [place] [address] Jemma Medeiros NP Fibromyalgia (Primary Dx); BMI 27.0-27.9,adult; Acute pain of right shoulder; Generalized joint pain; Generalized joint pain 02/11/2025 Results Follow-Up [facility] Epilepsy [address] [facility] 6th [place] [address] [place] [address] Teto Welsh MD PhD Vitamin D 25 hydroxy, Comprehensive metabolic panel, CBC with auto differential, Additional followed-up results: 3 02/09/2025 7:00 PM CDT Lab [facility] [address] [place] [address] High risk medication use 02/09/2025 4:30 PM CDT Office Visit [facility] Epilepsy [address] [facility] 6th [place] [address] Teto Welsh MD PhD Seizure disorder (HCC) (Primary Dx); High risk medication use 01/28/2025 3:20 PM CDT Office Visit [facility] Ophthalmology [address] [facility] [address] [place] [address] Ani Welch MD Choroidal nevus, right eye [...] on file Legal Sex Female 2:17 PM COD CLERK Gender Identity Female 07/21/2024 4:07 PM COD CLERK Sexual Orientation Not on file Obstetrics History [...] CDT High risk medication use B-SCAN ULTRASOUND 93976 - OD - RIGHT EYE Routine 01/28/2025 4:12 PM CDT Choroidal nevus, right eye FUNDUS PHOTOS/FAF - OD - RIGHT EYE Routine 01/28/2025 4:10 PM CDT Choroidal nevus, right eye SCREENING MAMMOGRAM BILATERAL W AZAR W IMPLANTS Schedule Routine, Read Routine (OP Routine) 08/25/2024 1:38 PM COD CLERK Screening mammogram, encounter for STOOL DNA COLOGUARD [...] 03/10/2025 7:09 AM CDT Performed at: - [address] [id number] Family Services Worker: Tang Shirley PhD, Phone: [phone] us Teto Welsh MD PhD LAB BLOOD ORDERABLES Karina l Result [facility] - * eGFR (02/09/2025 5:11 PM CDT) [...] PhD LAB BLOOD ORDERABLES Karina ravindra Result [facility] [place] [address] * (ABNORMAL) Differential, auto (02/09/2025 5:11 PM CDT) Pathologist [facility] Neutrophil abs 1.66 1.50 - 6.50 K/cumm Imm gran abs 0.02 0.00 - 0.10 K/cumm [facility] Lymphocyte abs 0.66(L) 0.80 - 3.30 K/cumm [facility] Monocyte abs 0.29 0.20 - 0.80 K/cumm [facility] Eosinophil abs 0.01 0.00 - 0.50 K/cumm [facility] Basophil abs 0.00 0.00 - 0.10 K/cumm [facility] Neutrophil pct 62.8 % [facility] Comment: Interpretive Data Percent cell count reference ranges are not reported, since discordance with absolute values may lead to misinterpretation of CBC data. Current Interpretive Data was last revised on 2017. Imm gran pct 0.8 % [facility] Comment: Interpretive Data Percent cell count reference ranges are not reported, since discordance with absolute values may lead to misinterpretation of CBC data. Current Interpretive Data was last revised on 2017. Lymphocyte pct 25.0 % [facility] Comment: Interpretive Data Percent cell count reference ranges are not reported, since discordance with absolute values may lead to misinterpretation of CBC data. Current Interpretive Data was last revised on 2017. Monocyte pct 11.0 % [facility] Comment: Interpretive Data Percent cell count reference ranges are not reported, since discordance with absolute values may lead to misinterpretation of CBC data. Current Interpretive Data was last revised on 2017. Eosinophil pct 0.4 % [facility] Comment: Interpretive Data Percent cell count reference ranges are not reported, since discordance with absolute values may lead to misinterpretation of CBC data. Current Interpretive Data was last revised on 2017. Basophil pct 0.0 % [facility] Comment: Interpretive Data Percent cell count reference ranges are not reported, since discordance with absolute values may lead to misinterpretation of CBC data. Current Interpretive Data was last revised on 2017. Blood 02/09/2025 5:11 PM CDT 02/09/2025 5:35 PM CDT Teto Welsh MD PhD LAB BLOOD ORDERABLES Karina waite Result [facility] [place] [address] * (ABNORMAL) CBC with auto differential (02/09/2025 5:11 PM CDT) WBC 2.64(L) 3.80 - 9.90 K/cumm Hgb 13.9 11.9 - 15.5 g/dL [facility] Hct 40.0 35.6 - 45.5 % [facility] Plt 150 150 - 400 K/cumm [facility] MPV 9.7 9.1 - 12.3 fL [facility] RBC 4.72 3.90 - 5.20 M/cumm [facility] MCV 84.7 81.3 - 96.4 fL [facility] MCH 29.4 27.1 - 33.3 pg [facility] MCHC 34.8 32.3 - 35.7 g/dL [facility] RDW CV 12.8 11.1 - 14.9 % [facility] RDW SD 39.2 35.7 - 48.1 fL [facility] NRBC abs 0.00 0.00 - 0.01 K/cumm [facility] Blood 02/09/2025 5:11 PM CDT 02/09/2025 5:35 PM CDT Teto Welsh MD PhD LAB BLOOD ORDERABLES Karina l Result Performing Organization Address City/[facility]/ZIP Co de Phone Number [facility] [place] [address] * Vitamin D 25 hydroxy (02/09/2025 5:11 PM CDT) [facility] Vitamin D 25-OH 45 30 - 80 ng/mL Blood 02/09/2025 5:11 PM CDT 02/09/2025 5:35 PM CDT Teto Welsh MD PhD LAB BLOOD ORDERABLES Karina l Result Performing Organization Address [facility] de Phone Number [facility] Department [place] [address] * Comprehensive metabolic panel (02/09/2025 5:11 PM CDT) [facility] Sodium 143 135 - 145 mmol/L Potassium, pl 3.9 3.3 - 4.9 mmol/L [facility] Chloride 106 97 - 110 mmol/L [facility] CO2 32 22 - 32 mmol/L [facility] Anion gap 5 2 - 15 mmol/L [facility] BUN 7 6 - 25 mg/dL [facility] Creatinine 0.65 0.60 - 1.10 mg/dL [facility] Glucose 83 70 - 199 mg/dL [facility] Comment: Interpretive Data Fasting glucose >/= 126 [...] 2022. Calcium 9.9 8.5 - 10.3 mg/dL [facility] Bilirubin, total 1.0 0.1 - 1.2 mg/dL [facility] Protein, pl 6.9 6.5 - 8.5 g/dL [facility] Albumin 4.3 3.5 - 5.0 g/dL [facility] Alk phos 80 40 - 130 Units/L [facility] ALT 18 7 - 45 Units/L [facility] AST 21 10 - 45 Units/L [facility] Blood 02/09/2025 5:11 PM CDT 02/09/2025 5:35 PM CDT Teto Welsh MD PhD LAB BLOOD ORDERABLES Karina l Result [facility] [place] [address] * B-SCAN ULTRASOUND 24188 - OD - RIGHT EYE (01/28/2025 4:12 [...] W Azar W Implants (08/25/2024 1:38 PM COD CLERK) Anatomical Region Laterality Modality Breast Bilateral Mammography Narrative 09/09/2024 9:51 AM COD CLERK Examination: Screening Mammogram Bilateral W Azar W [...] CDT) Stool DNA - Cologuard Negative Negative [employer] (CLIA #:[id number]) Comment: NEGATIVE TEST RESULT. A negative Cologuard [...] (Isa Silverio al, N Engl J Med 2014;370(14):6528-9658) The normal value (reference range) for this assay is negative. COLOGUARD RE-SCREENING RECOMMENDATION: Periodic colorectal cancer screening is an important part of preventive healthcare for asymptomatic individuals at average risk for colorectal cancer. Following a negative Cologuard result, the [place] Cancer Society and U.S. Multi-Society Task Force screening guidelines recommend a Cologuard re-screening interval of 3 years. References: [place] [employer] Guideline for Colorectal Cancer Screening: https://www.cancer.org/cancer/wjzhp-ielebd-cobpgo/vtmkmrtit-xigfabqee-apisubh/ac s-rec ommendations.html.; Brent DK, Paul BOYCE, Kiana AnneK, Colorectal Cancer Screening: Recommendations for Physicians and Patients from the U.S. Multi-Society Task Force on Colorectal Cancer Screening , Am J Gastroenterology 2017; 112:6131-0717. TEST DESCRIPTION: Composite algorithmic analysis of stool [...] (Isa Silverio al, N Engl J Med 2014;370(14):4414-8150.) Cologuard may produce a false negative or false positive result (no colorectal cancer or precancerous polyp present at colonoscopy follow up). A negative Cologuard test result does not guarantee the absence of CRC or advanced adenoma (pre-cancer). The current Cologuard screening interval is every 3 years. ([place] Cancer Society and U.S. Multi-Society Task Force). Cologuard performance data in a 10,000 patient pivotal study using colonoscopy as the reference method can be accessed at the following location: www.bulletn..Widgetlabs/results. Additional description of the Cologuard test process, warnings and precautions can be found at www.colCambrios Technologiesrd.com. Stool 05/04/2024 3:30 PM CDT 05/06/2024 10:00 AM CDT us Arleth Mckeon MD LAB BODY FLUIDS AND STOOLS ORDERABLES Final Result Existence Before [facility] (CLIA #:[id number]) [place] [address] from Last 3 Months or Most Recently Relevant to Health Maintenance Insurance [employer] OPEN ACCESS [employer] OPEN ACCESS [employer] OPEN ACCESS Care Teams Oven Tender Relationship Specialty Start Date End Date Jemma Medeiros NP [address] [place] [address] PCP - General Internal Medicine 10/07/23 Arleth Mckeon MD [address] [facility] [address] [place] [address] Consulting Physician Obstetrics and Gynecology 09/17/24 Savage Duran [address] [place] [address], [id number] [place] [address] Referring Physician Ophthalmology 01/28/25
--- OUTSIDE RECORDS SUMMARY | 2025-03-29 16:29 | XMS_ITS | Patient Health Record ---
Author Organization [employer] [place] ([address]) Address [address] [facility] [address] [place] [address] Care Team Providers Care Drywall Metal Stud Worker Name Role Phone Jemma Medeiros Primary Care Provider Hailey Ward Unavailable [phone] Allergies Allergen (clinical drug ingredient) Drug/Non Drug [...] more) Unknown 02/09/2015 Administer ed Portal Information Influenza Unknown 05/26/2024 Administered Portal [employer] NOC Tdap Unknown 02/09/2019 Administered Portal [employer] Social History Tobacco Use: Social History Observation Description Date Details (start date - stop date) Former Smoker NA - NA Tobacco Control (Standard) Question Answer Notes Tobacco use: Former smoker How long has it been since you last smoked? Grea ter than 10 years Problems Problem Type SNOMED Code ICD Code Onset Dates Problem Status W/U Status Risk Notes Problem Chronic allergic conjunctivitis (20933127) Other chronic allergic conjunctivitis (H10.45) Active confirmed Problem Allergic rhinitis caused by pollen (disorder) (94507865) Allergic rhinitis due to pollen (J30.1) Active confirmed Problem Allergic rhinitis (64927967) Other allergic rhinitis (J30.89) Active confirmed Problem Allergic rhinitis caused by animal hair and dander (056015747248196) Allergic rhinitis due to animal (cat) (dog) hair and dander (J30.81) Active confirmed Problem Allergy to penicillin (38712964) Allergy status to penicillin (Z88.0) Active confirmed Vital Signs Oximetry 99 % 09/02/2024 Blood pressure diastolic 75 mm Hg 09/02/2024 Height 64 in 09/02/2024 Blood pressure systolic 111 mm Hg 09/02/2024 Weight 148.4 lbs 09/02/2024 BMI 25.47 kg/m2 09/02/2024 Encounters Encounter Location Date Provider Diagnosis [address] [address] 09/02/2024 Hailey Sena Allergic rhinitis du e to pollen J30.1 ; Chronic cough R05.3 ; Allergic rhinitis due to animal (cat) (dog) hair and dander J30.81 ; Allergy status to penicillin Z88.0 ; Other allergic rhinitis J30.89 and Other chronic allergic conjunctivitis H10.[address] [address] 06/17/2024 Hailey Sena Allergic rhinitis du e to [...] Date Coverage End Date [place] [employer] [address] [place] [id number] [id number] Nadeem Calvert Spouse - patient is the [...]
--- OUTSIDE RECORDS SUMMARY | 2025-03-29 16:30 | XMS_ITS ---
Author Organization [facility] [employer] [place] ([address]) Address [address] [place] [address] Care Team Providers Care Dining Room Server Name Role Phone Jemma Medeiros Primary Care Provider Hailey Ward Unavailable [phone] REASON FOR VISIT Asthma follow-up - improvement [...] Active Encounters Encounter Location Date Provider Diagnosis [facility] [address] [facility] [address] [place] [address] 03/03/2025 Hailey Sena Allergic rhinitis du e [...] Notes * Alison CALVERTaDOB:1974 (50 yo F)Acc No.[id number]:03/03/2025 Progress Notes Patient: Alison ORDAZ Provider: Dayana Sena MD :1975 A ge:50 Y S ex:Female Date:03/03/2025 Address:[address] [place], [place] [id number] Pcp:Jemma Medeiros Subjective: * Chief Complaints: * [...] symptoms with improvement. S he moved to [place] about 18 months ago from [place] and previously lived in [place]. She has a history of recurrent otitis and rhinitis and received immunotherapy in childhood in [place]. Sinus surgery was performed in 2017 with [...] Loop) * Billing Information: * Visit Code: 48358 Office Visit, Est Pt., Level 4. Modifiers: 25 * Procedure Codes: 07024 PT-FOCUSED HLTH RISK ASSMT. G8427 DOC MEDS VERIFIED W/PT OR RE. * Electronic signature of Nesha Sena MD on 03/29/2025 at 04:29 PM CDT Sign off status: Pending * Provider: Dayana Sena MD Date: 0 03/03/2025 Generated for Maci acevedo/Zahra/eTedysmitting on: 0 03/29/2025 04:29 PM CDT History and Physical Notes * [...] above symptoms with improvement. She moved to [place] about 18 months ago from [place] and previously lived in [place]. She has a history of recurrent otitis and rhinitis and received immunotherapy in childhood in [place]. Sinus surgery was performed in 2017 with [...]
--- OUTSIDE RECORDS SUMMARY | 2025-03-29 16:30 | XMS_ITS | Clinical Summary ---
Author Organization [facility] Address [address] [place] [address] Care Team Providers Care Mine Motor Operator Name Role Phone Nadege Ordoñez MD Primary Care Provider Source Comments [facility],non-owned Affiliates and Associated Physician Practices is amultiple site organization consisting of ambulatory clinics and hospital sitesin [place], [place], [place] and [place]. This disclosure is being madepursuant to the Care Everywhere program and may not contain all information available regarding this patient. Last updated 18.[facility] Allergies Active Allergy Reactions Criticality Noted Date [...] age to complete this topic Insurance [facility] Address: [facility] [id number] [place] [id number] [employer] Care Teams Mine Motor Operator Relationship Specialty Start Date End Date Nadege Ordoñez MD [address] [phone] PCP - General Internal Medicine 01/17/23
--- OUTSIDE RECORDS SUMMARY | 2025-03-29 16:30 | XMS_ITS | Patient Health Record ---
Author Organization [facility] Address [address] [place] [address] Care Team Providers Care Car Shifter Name Role Phone Jose Guadalupe Evans Primary Care Provider UnavailFrancesco Patel Unavailable [phone] Allergies Allergen (clinical drug ingredient) Drug/Non Drug [...] W/U Status Risk Notes Problem Anxiety state (459658636) Anxiety unspecified (300.00) Active confirmed Problem Depressive disorder (68159268) Depression disorder, not elsewhere classified (311) Active confirmed Problem Seizure (80289809) Seizures (780.39) Active confirmed Problem Major depression, single episode (93807264) Major depressive disorder, single episode, unspecified (F32.9) Active confirmed Problem Anxiety disorder (482547658) Anxiety disorder, unspecified (F41.9) Active confirmed Problem Amnesia (04050919) Other amnesia (R41.3) Active confirmed Problem Seizure disorder (672020316) Seizure disorder (G40.909) Active confirmed Problem Mild cognitive disorder (087046577) Mild cognitive disorder (F09) Active confirmed Problem Epilepsy (82742983) Convulsions, epileptic (G40.909) Active confirmed Problem Breakthrough seizure (G40.919) Active confirmed Problem Bipolar 1 disorder (678754334) Bipolar 1 disorder (F31.9) Active confirmed Problem 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, 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 Plan Of Treatment Pending Test Test Name Order Date Vitamin B12 and Folate 04/25/2018 Levetiracetam, S 10/18/2015 Folate 04/15/2018 Lamotrigine 06/03/2020 Levetiracetam (Keppra) 06/03/2020 Insurance Providers Payer Name Payer Address Payer Phone Subscriber Number Group Number Insured Name Patient Relationship to Insured Coverage Start Date Coverage End Date [employer] [address] [place] [phone] [id number] Angel Calvert Self - patient is the insured Medical (General) History Medical History History ICD Code Seizures 780.39 Depression disorder, not elsewhere class ified 311 Anxiety unspecified 300.00 Bipolar 1 disorder F31.9 Surgical History Surgery Date(Month/Year) GALL BLADDER
--- OUTSIDE RECORDS SUMMARY | 2025-03-29 16:30 | XMS_ITS | Patient Health Record ---
Author Organization Unknown Care Team Providers Care Padding Machine Operator Name Role Phone Elizabeth Escobedo Unavailable [phone] ALLERGIES Allergen (clinical drug ingredient) Drug/Non Drug [...] Active confirmed Disorder of female genital organs (879971750) Problem Excessive and frequent menstruation with regular cycle (N92.0) Active confirmed Excessive and frequent menstruation (393333006) Problem Dysmenorrhea, unspecified (N94.6) Active confirmed Dysmenorrhea (571055072) Problem Menopausal and female climacteric states (N95.1) Active confirmed Menopause (924727060) PLAN OF TREATMENT No Information Insurance Providers Payer Name Payer Address Payer Phone Subscriber Number Group Number Insured Name Patient Relationship to Insured Coverage Start Date [facility]age End Date [facility] [address] [place] [phone] [id number] GODFREY CARTER Self - patient is the insured MEDICAL (GENERAL) HISTORY Medical History History ICD Code Epilepsy, bipolar, ocular cancer Surgical History Surgery Date(Month/Year) essure 2015 gallbladder removal 2010 sinus surgery 2017 tummy tuck, breast lift and mar 2021
--- OUTSIDE RECORDS SUMMARY | 2025-03-29 16:30 | XMS_ITS ---
Author Organization [facility] ([address]) Address [address] [place] [address] Care Team Providers Care Lead Business Analyst Name Role Phone Jemma Medeiros Primary Care Provider Hailey Ward Unavailable [phone] REASON FOR VISIT [facility] follow-up Encounters Encounter Location Date Provider Diagnosis [facility] [address] [place] [address] 07/22/2024 Hailey Sena Plan Of Treatment No Information Progress Notes * Alison CALVERTTorstenB:1974 (50 yo F)Acc No.[id number]:07/22/2024 Progress Notes Patient: Alison ORDAZ Provider: Dayana Sena MD :1975 A ge:49 Y S ex:Female Date:07/22/2024 Address:[address] [place], [place] [phone] Pcp:Jemma Medeiros Subjective: * Chief Complaints: * 1 . [facility] follow-up. * Medical History: Objective: * Vitals: Assessment: Plan: * Treatment: * Billing Information: * Visit Code: * Procedure Codes: * Electronic signature of Nesha Sena MD on 03/29/2025 at 04:29 PM CDT Sign off status: Pending * Provider: Dayana Sena MD Date: 09/22/2023 Generated for Printi ng/Fayuliyag/eTransmitting on: 0 03/29/2025 04:29 PM CDT
[2025-03-29 16:34] VITALS: BP 100/60; PULSE 76; RESP 18; TEMP 36.4; O2SAT 97
--- NOTE | 2025-03-29 16:58 | ED_ITS ---
HPI - Eye Problem General Chief complaint: Eye Problems Stated complaint: LT [facility] Time Seen by Provider: 03/29/25 16:40 Source: patient and RN notes reviewed Mode of arrival: ambulatory Limitations: no limitations History of Present Illness HPI Narrative: Patient presents today complaining of a left eye dryness, scratchiness, redness, crusting and burning times 8 days. Denies eye pain or vision changes. Also states her right eye has been crusty today. No active purulent discharge bilaterally. She has tried some warm compresses without improvement. She does not wear contacts. Related Data Home Medications ?Medication ?Instructions ?Recorded ?Confirmed ?Last Taken ?Type divalproex 250 mg tablet,delayed 250 mg PO Q12H 12/02/23 03/29/25 Unknown History release (Depakote) lamotrigine 25 mg tablet (Lamictal) 25 mg PO DAILY 12/02/23 03/29/25 Unknown History quetiapine 150 mg tablet,extended 150 mg PO QHS 12/02/23 03/29/25 Unknown History release 24 hr (Seroquel XR) armodafinil 150 mg tablet mg PO 03/29/25 Unknown History estradiol 0.075 mg/24 hr 03/29/25 Unknown History semiweekly transdermal patch lumateperone 21 mg capsule mg PO 03/29/25 Unknown History (Caplyta) pregabalin 100 mg capsule mg 03/29/25 Unknown History pregabalin 200 mg capsule mg 03/29/25 Unknown History Allergies Allergy/AdvReac Type Severity Reaction Status Date / Time Penicillins Allergy Mild Rash Verified 03/29/25 16:28 [facility] Past Medical History Medical History Myalgia Vitamin D deficiency Encounter for medication management Counseling on health promotion and disease prevention Persistent fatigue after COVID-19 CORRINA positive Seizures Cancer Anxiety Surgical History Surgical History No pertinent past surgical history Family History Family History Other Breast cancer Carcinoma of colon Depression Diabetes mellitus Heart disease Social History Social History Smoking status: Never smoker Alcohol intake: current Substance use: never Substance use type: does not use Do You Feel Safe in your Home?: Yes Lack of Transportation: No Lack of Food: Never True Current Housing: I Have Housing Concerned About Future Housing: No Difficulty Paying Gas/Electric Bills: No Difficulty Paying for Meds: No Currently Unemployed: No Education: Decline to Answer Difficulty w/ Childcare or Family Care: No Living arrangements: with family Occupation/Education: occupation 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 Please see nursing chart for further information. There is no relevant family history pertinent to the presenting complaint Exam Narrative: GENERAL: Well-appearing, well-nourished, and in no acute distress. HEAD: Normocephalic, atraumatic. EYES: EOMI. PERRL. Right eye: Conjunctiva normal. Lids and lashes normal. Left eye: Moderately injected conjunctiva. No active drainage. Lids and lashes normal. ENT: Mucous membranes pink and moist. NECK: Normal AROM. CHEST: No respiratory distress. EXTREMITIES: Normal range of motion. No edema. SKIN: Warm, dry, no rash. Capillary refill normal. Normal skin turgor. NEURO: No focal deficits. Alert and oriented x3. Gait steady. PSYCH: Normal affect. No signs of depression or anxiety. Course Course Level of Care: Express Care Visit Vital Signs Vital signs: Vital Signs Temperature 97.5 F L 03/29/25 16:34 Pulse Rate 76 03/29/25 16:34 Respiratory Rate 18 03/29/25 16:34 Blood Pressure 100/60 03/29/25 16:34 Pulse Oximetry 97 03/29/25 16:34 Oxygen Delivery Room Air 03/29/25 16:34 Temperature 97.5 F L 03/29/25 16:34 Pulse Rate 76 03/29/25 16:34 Respiratory Rate 18 03/29/25 16:34 Blood Pressure 100/60 03/29/25 16:34 Pulse Oximetry 97 03/29/25 16:34 Oxygen Delivery Room Air 03/29/25 16:34 Reviewed MDM - Eye Problem MDM Narrative Medical decision making narrative: 50-year-old female patient presents today with an 8 day history of dryness, scratchiness, redness, and crusting to the left eye with crustiness to the right eye that started today. No pain or vision changes. Warm compresses without improvement. Upon exam, patient has some moderately injected conjunctiva on the left with normal exam on the right. She has no active drainage. Recommend starting an antihistamine eyedrops to help with the scratchiness and crusting. At this time no signs that she has a bacterial conjunctivitis that would warrant an antibiotic drops. Recommend that if patient's symptoms do not improve after 3 days of the antihistamine eyedrops that she follow-up with her eye doctor. Vital signs stable. Patient agrees with plan. Anticipatory guidance given. Differential Diagnosis Differential diagnosis: Likely corneal abrasion, conjunctivitis and subconjunctival hemorrhage Critical Care Time Critical Care Time Critical Care Time: No Discharge Plan Discharge Clinical Impression: Acute conjunctivitis of left eye Qualifiers: Acute conjunctivitis type: unspecified Qualified Code(s): H10.32 - Unspecified acute conjunctivitis, left eye Patient Disposition: Home Condition: Stable Instructions: Conjunctivitis (ED) Additional Instructions: Please use an antihistamine eyedrop such as Zaditor. If symptoms are not improving after 3-4 days, please make an appointment with your eye doctor for follow up. Patient Language: Moldovan Prescriptions: No Action estradiol 0.075 mg/24 hr patch semiweekly pregabalin 100 mg capsule pregabalin 200 mg capsule armodafinil 150 mg tablet PO Caplyta 21 mg capsule PO divalproex [Depakote] 250 mg tablet,delayed release (DR/EC) 250 mg PO Q12H lamotrigine [Lamictal] 25 mg tablet 25 mg PO DAILY quetiapine [Seroquel XR] 150 mg tablet extended release 24 hr 150 mg PO QHS Follow-up/Referrals: Waldemar,LILLIAN Easton [Primary Care Provider] - Time of Disposition: 17:02
== END 2025-03-29 17:06 | disposition home or self-care (01) ==
PROVIDERS: Emergency Provider Nurse Practitioner; PCP Nurse Practitioner Family
DX: H10.32 Unspecified acute conjunctivitis, left eye (principal); E55.9 Vitamin D deficiency, unspecified; F41.9 Anxiety disorder, unspecified
CPT/HCPCS: 99212; G0463